=== PATIENT | female | born 1955 | race Caucasian/White ===

== ENCOUNTER 2017-10-25 07:21 | Emergency (ER) | payer OTHER, SELFPAY | END 2017-10-25 09:27 | disposition home or self-care (01) | PROVIDERS: Emergency Provider Emergency Medicine; PCP Internal Medicine; Visit Provider Emergency Medicine | DX: J06.9 Acute upper respiratory infection, unspecified (principal) | CPT/HCPCS: 71020; 71046; 80053; 84484; 85025; 93005; 93010; 94640; 94664; 96361; 96374; 99058; 99285; J1885 ==

== ENCOUNTER → 2018-03-17 13:53 | Outpatient (CLI) | payer OTHER, SELFPAY ==
--- NOTE | 2018-03-17 | DI.RAD.S_ITS ---
PROCEDURE: XR HAND RT MIN 3V INDICATIONS: SPRAIN OF UNSPECIFIED PART OF RT WRIST TECHNIQUE: 3 views of the hand(s) acquired. COMPARISON: None. FINDINGS: Bones: No fractures or dislocations. Carpal bones are normally aligned. No suspicious bony lesions. Soft tissues: No suspicious soft tissue calcifications. IMPRESSION: Normal right hand. Dictated by: Woo Tse M.D. on 03/17/2018 at 17:29 Approved by: Woo Tse M.D. on 03/18/2018 at 9:50
== END ==
PROVIDERS: PCP Internal Medicine; Visit Provider Internal Medicine
DX: S63.91XA Sprain of unspecified part of right wrist and hand, initial encounter (principal)
CPT/HCPCS: 73130

== ENCOUNTER → 2018-06-06 11:58 | Outpatient (CLI) | payer OTHER, SELFPAY ==
[2018-06-06 13:33] LABS: BUN Creatinine Ratio 25.7 (6-22); Blood Urea Nitrogen 18 mg/dL (7-17); Calcium 9.8 mg/dL (8.4-10.2); Carbon Dioxide 29 mmol/L (22-32); Chloride 102 mmol/L (98-107); Cholesterol 231 mg/dL (140-199); Estimated Glomerular Filt Rate > 60.0 mL/min (>60); Glucose 102 mg/dL (80-110); HDL Cholesterol 47 mg/dL (40-60); HEMOLYSIS < 15 (0-50); LDL Cholesterol Calculated 161 mg/dL (<100); Sodium 142 mmol/L (137-145); Triglycerides 117 mg/dL (35-150)
== END ==
PROVIDERS: PCP Internal Medicine; Visit Provider Internal Medicine
DX: R73.02 Impaired glucose tolerance (oral) (principal); E78.00 Pure hypercholesterolemia, unspecified
CPT/HCPCS: 36415; 80048; 80061

== ENCOUNTER → 2018-06-08 10:31 | Outpatient (CLI) | payer OTHER, SELFPAY ==
--- NOTE | 2018-06-08 | DI.US.S_ITS ---
PROCEDURE: US CAROTID DOPPLER BI INDICATIONS: Occlusion and stenosis of unspecified carotid vimal TECHNIQUE: Color and pulse Doppler interrogation was performed of both carotid systems, with image documentation and velocity measurements. COMPARISON: [facility], , CAROTID ARTERY DOPPLER BILAT, 11/26/2016, 8:36. FINDINGS: Stenosis calculations are based on SRU (Society of Radiologists in Ultrasound) criteria. Right side: Brachial blood pressure: 120/61 mm Hg. Common carotid artery peak systolic velocity: 102 cm/sec. Internal carotid artery peak systolic velocity: 85 cm/sec. Internal carotid artery end diastolic velocity: 24 cm/sec. External carotid artery peak systolic velocity: 111 cm/sec. ICA/CCA peak systolic ratio: 0.8. Singh scale imaging description: Minimal plaque at the bifurcation Percent internal carotid artery stenosis: Less than 50%. Vertebral artery: Flow direction is antegrade. Left side: Brachial blood pressure: 114/65 mm Hg. Common carotid artery peak systolic velocity: 130 cm/sec. Internal carotid artery peak systolic velocity: 91 cm/sec. Internal carotid artery end diastolic velocity: 30 cm/sec. External carotid artery peak systolic velocity: 93 cm/sec. ICA/CCA peak systolic ratio: 0.7. Singh scale imaging description: Mild plaque at the bifurcation Percent internal carotid artery stenosis: Less than 50%. Vertebral artery: Flow direction is antegrade. IMPRESSION: Bilateral less than 50% ICA stenoses. Dictated by: Manish Harp M.D. on 06/08/2018 at 12:55 Approved by: Manish Harp M.D. on 06/08/2018 at 12:57
== END ==
PROVIDERS: PCP Internal Medicine; Visit Provider Internal Medicine
DX: I65.23 Occlusion and stenosis of bilateral carotid arteries (principal)
CPT/HCPCS: 93880

== ENCOUNTER → 2018-07-26 10:06 | Outpatient (CLI) | payer OTHER, SELFPAY ==
[2018-07-26 12:25] LABS: TSH w/ Reflex to FT4 1.64 uIU/mL (0.47-4.68)
== END ==
PROVIDERS: PCP Internal Medicine; Visit Provider Internal Medicine
DX: E03.9 Hypothyroidism, unspecified (principal)
CPT/HCPCS: 36415; 84443

== ENCOUNTER → 2019-01-18 10:08 | Outpatient (CLI) | payer OTHER, SELFPAY ==
[2019-01-18 11:46] LABS: TSH w/ Reflex to FT4 0.98 uIU/mL (0.47-4.68)
== END ==
PROVIDERS: PCP Internal Medicine; Visit Provider Internal Medicine
DX: E03.9 Hypothyroidism, unspecified (principal)
CPT/HCPCS: 36415; 84443

== ENCOUNTER → 2019-03-28 08:47 | Outpatient (CLI) | payer OTHER, SELFPAY ==
[2019-03-28 09:57] LABS: BUN Creatinine Ratio 23.8 (6-22); Blood Urea Nitrogen 19 mg/dL (7-17); Carbon Dioxide 27 mmol/L (22-32); Chloride 103 mmol/L (98-107); Estimated Glomerular Filt Rate > 60.0 mL/min (>60); Glucose 114 mg/dL (80-110); HEMOLYSIS < 15 (0-50); Potassium 4.8 mmol/L (3.4-5.1); Sodium 140 mmol/L (137-145)
[2019-03-28 11:00] LABS: TSH w/ Reflex to FT4 2.11 uIU/mL (0.47-4.68)
== END ==
PROVIDERS: PCP Internal Medicine; Visit Provider Internal Medicine Hematology & Oncology
DX: C50.412 Malignant neoplasm of upper-outer quadrant of left female breast (principal); E03.9 Hypothyroidism, unspecified
CPT/HCPCS: 36415; 80048; 84443

== ENCOUNTER → 2020-01-17 14:57 | Outpatient (ROUT) | payer OTHER, SELFPAY ==
[2020-01-17 16:22] LABS: TSH w/ Reflex to FT4 1.35 uIU/mL (0.47-4.68)
[2020-01-17 16:42] LABS: BUN Creatinine Ratio 31.3 (6-22); Blood Urea Nitrogen 25 mg/dL (7-17); Calcium 10.4 mg/dL (8.4-10.2); Carbon Dioxide 30 mmol/L (22-32); Chloride 102 mmol/L (98-107); Cholesterol 234 mg/dL (140-199); Estimated Glomerular Filt Rate > 60.0 mL/min (>60); Glucose 113 mg/dL (80-110); HDL Cholesterol 41 mg/dL (40-60); HEMOLYSIS < 15 (0-50); LDL Cholesterol Calculated 162 mg/dL (<100); Potassium 4.9 mmol/L (3.4-5.1); Sodium 138 mmol/L (137-145); Triglycerides 153 mg/dL (35-150)
== END ==
PROVIDERS: PCP Internal Medicine; Visit Provider Internal Medicine
DX: Z00.00 Encounter for general adult medical examination without abnormal findings (principal); E03.9 Hypothyroidism, unspecified; E78.00 Pure hypercholesterolemia, unspecified
CPT/HCPCS: 80048; 80061; 84443

== ENCOUNTER → 2020-04-17 14:16 | Outpatient (CLI) | payer OTHER, SELFPAY ==
[2020-04-17 14:54] LABS: Add Manual Diff / Slide Review NO; Basophils Absolute Auto 100 /uL (0-100); Basophils Percent Auto 0.6 % (0-2); Eosinophils Absolute Auto 300 /uL (0-450); Eosinophils Percent Auto 2.3 % (2-4); Hematocrit 40.8 % (36-46); Hemoglobin 13.5 g/dL (12.0-16.0); Lymphocytes Absolute Auto 2600 /uL (1100-4500); Lymphocytes Percent Auto 23.3 % (25-40); Mean Corpuscular Volume 93.9 fL (80-100); Monocytes Absolute Auto 800 /uL (0-900); Monocytes Percent Auto 6.8 % (3-14); Neutrophils Absolute Auto 7400 /uL (1500-7000); Platelet Count 415 X10^3/uL (150-400); Red Blood Cell Count 4.34 X10^6/uL (4.0-5.2); Red Cell Distribution Width 13.3 % (11.6-14.8); White Blood Cell Count 11.1 X10^3/uL (4.5-11.0)
[2020-04-17 17:03] LABS: Alanine Aminotransferase 25 IU/L (<35); Albumin 4.4 g/dL (3.5-5.0); Albumin Globulin Ratio 1.3 (1.0-2.8); Alkaline Phosphatase 65 U/L (38-126); Aspartate Aminotransferase 30 IU/L (14-36); BUN Creatinine Ratio 26.5 (6-22); Bilirubin Total 0.9 mg/dL (0.2-1.3); Blood Urea Nitrogen 22 mg/dL (7-17); Calcium 9.7 mg/dL (8.4-10.2); Carbon Dioxide 34 mmol/L (22-32); Chloride 102 mmol/L (98-107); Estimated Glomerular Filt Rate > 60.0 mL/min (>60); Globulin 3.5 g/dL (1.7-4.1); Glucose 104 mg/dL (80-110); HEMOLYSIS < 15 (0-50); Potassium 5.1 mmol/L (3.4-5.1); Sodium 139 mmol/L (137-145); Total Protein 7.9 g/dL (6.3-8.2)
[2020-04-17 17:33] LABS: Thyroid Stimulating Hormone 1.24 uIU/mL (0.47-4.68)
== END ==
PROVIDERS: PCP Internal Medicine; Referring Provider Internal Medicine Hematology & Oncology; Visit Provider Internal Medicine Hematology & Oncology
DX: C50.012 Malignant neoplasm of nipple and areola, left female breast (principal); Z17.1 Estrogen receptor negative status [ER-]
CPT/HCPCS: 36415; 80053; 84443; 85025

== ENCOUNTER → 2021-03-14 08:45 | Outpatient (CLI) | payer MEDICARE, OTHER, SELFPAY ==
[2021-03-14 10:43] LABS: Add Manual Diff / Slide Review NO; Basophils Absolute Auto 100 /uL (0-100); Basophils Percent Auto 0.9 % (0-2); Eosinophils Absolute Auto 300 /uL (0-450); Eosinophils Percent Auto 3.3 % (2-4); Hematocrit 38.3 % (36-46); Hemoglobin 12.7 g/dL (12.0-16.0); Lymphocytes Absolute Auto 2700 /uL (1100-4500); Lymphocytes Percent Auto 25.6 % (25-40); Mean Corpuscular HGB Conc 33.3 % (30-36); Mean Corpuscular Hemoglobin 31.2 PG (26-34); Mean Corpuscular Volume 93.8 fL (80-100); Monocytes Absolute Auto 800 /uL (0-900); Monocytes Percent Auto 7.4 % (3-14); Neutrophils Absolute Auto 6600 /uL (1500-7000); Neutrophils Percent Auto 62.8 % (50-75); Platelet Count 383 X10^3/uL (150-400); Red Blood Cell Count 4.08 X10^6/uL (4.0-5.2); Red Cell Distribution Width 14.8 % (11.6-14.8); White Blood Cell Count 10.6 X10^3/uL (4.5-11.0)
[2021-03-14 11:14] LABS: Alanine Aminotransferase 35 IU/L (<35); Albumin 4.3 g/dL (3.5-5.0); Albumin Globulin Ratio 1.4 (1.0-2.8); Alkaline Phosphatase 64 U/L (38-126); Aspartate Aminotransferase 38 IU/L (14-36); BUN Creatinine Ratio 27.8 (6-22); Bilirubin Total 0.6 mg/dL (0.2-1.3); Blood Urea Nitrogen 20 mg/dL (7-17); Calcium 9.6 mg/dL (8.4-10.2); Carbon Dioxide 27 mmol/L (22-32); Chloride 107 mmol/L (98-107); Estimated Glomerular Filt Rate > 60.0 mL/min (>60); Glucose 114 mg/dL (80-110); HEMOLYSIS < 15 (0-50); Potassium 4.5 mmol/L (3.4-5.1); Sodium 140 mmol/L (137-145); Total Protein 7.3 g/dL (6.3-8.2)
== END ==
PROVIDERS: PCP Internal Medicine; Referring Provider Internal Medicine Hematology & Oncology; Visit Provider Internal Medicine Hematology & Oncology
DX: Z85.71 Personal history of Hodgkin lymphoma (principal); C50.012 Malignant neoplasm of nipple and areola, left female breast; Z17.1 Estrogen receptor negative status [ER-]
CPT/HCPCS: 36415; 80053; 85025

== ENCOUNTER → 2023-01-07 12:15 | Outpatient (CLI) | payer MEDICARE, OTHER, SELFPAY ==
--- NOTE | 2023-01-07 | DI.RAD.S_ITS ---
Bone Density Report Name: MELLY JIMENEZ Age: 67 Sex: Female Ethnicity: White Date of : 1955 Indication: osteopenia; parental hip fracture; Referring Provider: GELY GARCIA Study: Bone densitometry was performed. Exam Date: January 07, 2023 Accession number: [id number] Bone Density: Region BMD T-score Z-score Classification AP Spine(L1-L4) 0.885 -1.5 0.4 Osteopenia Femoral Neck (Left) 0.638 -1.9 -0.3 Osteopenia Total Hip (Left) 0.823 -1.0 0.4 Normal Femoral Neck (Right) 0.661 -1.7 -0.1 Osteopenia Total Hip (Right) 0.873 -0.6 0.8 Normal Total Hip Mean 0.848 -0.8 0.6 Normal World Health Organization criteria for BMD impression classify patients as: Normal (T-score at or above -1.0), Osteopenia (T-score between -1.0 and -2.5), or Osteoporosis (T-score at or below -2.5). 10-year Fracture Risk(1): Major Osteoporotic Fracture 18% Hip Fracture 2.2% Reported Risk Factors: [place] (), Neck BMD=0.638, BMI=25.8, parental fracture (1) FRAX(R) Version 3.08. Fracture probability calculated for an untreated patient. Fracture probability may be lower if the patient has received treatment. Previous Exams: -- Region Exam Age BMD T-score BMD Change BMD Change Date g/cm2 vs Baseline vs Previous -- AP Spine (L1-L4) 01/07/2023 67 0.885 -1.5 -0.028 (-3.1%)# -0.028 (-3.1%)# 03/10/2017 61 0.913 -1.2 Total Hip(Left) 01/07/2023 67 0.823 -1.0 -0.010 (-1.2%)# -0.010 (-1.2%)# 03/10/2017 61 0.833 -0.9 Total Hip(Right) 01/07/2023 67 0.873 -0.6 -0.009 (-1.0%)# -0.009 (-1.0%)# 03/10/2017 61 0.882 -0.5 -- *Denotes significance at 95% confidence level, LSC for AP Spine = 0.022 g/cm2, LSC for Total Hip = 0.027 g/cm2 # Denotes dissimilar scan types or analysis methods Impression: The patient has low bone mass, based on the Left Femoral Neck T-score. The patient has an estimated ten-year risk of hip fracture of 2.2% and an estimated ten-year risk of major fracture of 18%, based on the WHO FRAX algorithm. The patient has risk factors, including: parental hip fracture. No significant bone loss was observed. Discussion: BONE DENSITY IS LOW AT ONE OR MORE SKELETAL SITES. This patient's lowest T-score is low at one or more skeletal sites. It meets the World Health Organization's (WHO) criteria for low bone mass (T-score between -1.0 and -2.5). The patient's 10-year risk of fracture as calculated by FRAX is less than the threshold where pharmacological therapy is recommended by the National Osteoporosis Foundation (NOF). However, all treatment decisions require clinical judgment and consideration of individual patient factors, including patient preferences, comorbidities, previous drug use, risk factors not captured in the FRAX model (e.g., frailty, falls, vitamin D deficiency, increased bone turnover, interval significant decline in bone density) and possible under or overestimation of fracture risk by FRAX. The patient should follow a healthful lifestyle (good nutrition with adequate calcium and vitamin D, and appropriate weight-bearing exercise). Follow-Up: Consider repeating this study in 2 to 3 years to reassess this patient's status, or sooner if there is some new clinical indication. Reported by: SID CLAUDIO M.D. on 01/07/2023 12:50:00 PM.
--- NOTE | 2023-01-07 | DI.US.S_ITS ---
PROCEDURE: US PERIPH VENOUS LOW EXTREM RT INDICATIONS: Asymptomatic menopausal state Pain in right knee TECHNIQUE: Real-time imaging, as well as color and pulse Doppler interrogation, were performed of the lower extremity deep veins from the inguinal ligament to the popliteal fossa. COMPARISON: None. FINDINGS: The common femoral, femoral and popliteal veins are normally compressible, and free of intraluminal thrombus. Color and pulse Doppler demonstrate normal phasic intraluminal flow. There is normal augmentation response to distal compression maneuver. IMPRESSION: No deep vein thrombosis of the right lower extremity. Dictated by: Beatrice Tavares M.D. on 01/07/2023 at 15:26 Approved by: Beatrice Tavares M.D. on 01/07/2023 at 15:26
== END ==
PROVIDERS: PCP Internal Medicine; Referring Provider Physician Assistant; Visit Provider Physician Assistant
DX: Z78.0 Asymptomatic menopausal state (principal); M25.561 Pain in right knee; M85.852 Other specified disorders of bone density and structure, left thigh
CPT/HCPCS: 77080; 93971

== ENCOUNTER → 2023-02-05 11:52 | Outpatient (CLI) | payer MEDICARE, OTHER, SELFPAY | PROVIDERS: PCP Internal Medicine; Referring Provider Internal Medicine; Visit Provider Internal Medicine | DX: R06.02 Shortness of breath (principal) | CPT/HCPCS: 94060; 94726; 94729 ==

== ENCOUNTER → 2023-03-22 10:06 | Outpatient (CLI) | payer MEDICARE, OTHER, SELFPAY ==
[2023-03-22 11:46] LABS: Alanine Aminotransferase 26 IU/L (<35); Aspartate Aminotransferase 28 IU/L (14-36); Cholesterol 220 mg/dL (140-199); Creatine Kinase 74 U/L (30-135); HDL Cholesterol 38 mg/dL (40-60); LDL Cholesterol Calculated 156 mg/dL (<100); Triglycerides 128 mg/dL (35-150)
[2023-03-22 11:57] LABS: LDL Cholesterol Direct 134 mg/dL (<100)
== END ==
PROVIDERS: PCP Internal Medicine; Referring Provider Internal Medicine Cardiovascular Disease; Visit Provider Internal Medicine Cardiovascular Disease
DX: E78.5 Hyperlipidemia, unspecified (principal); I77.9 Disorder of arteries and arterioles, unspecified
CPT/HCPCS: 36415; 80061; 82550; 83721; 84450; 84460

== ENCOUNTER → 2023-03-25 11:43 | Outpatient (CLI) | payer MEDICARE, OTHER, SELFPAY ==
--- NOTE | 2023-03-25 | DI.CT.S_ITS ---
PROCEDURE: CT ABDOMEN PELVIS W CON INDICATIONS: Right lower quadrant pain TECHNIQUE: After the administration of oral and IV contrast, axial sections were acquired from the lung bases to the pubic symphysis. Coronal and sagittal reformats were performed. For radiation dose reduction, the following was used: automated exposure control, adjustment of mA and/or kV according to patient size. COMPARISON: None. FINDINGS: Image quality: Excellent. Lung bases: Unremarkable. Left mastectomy. Heart: Normal size. Small pericardial effusion. ABDOMEN: Liver: Normal size. Mild hepatic steatosis. Gallbladder: Unremarkable. Biliary ducts: Unremarkable. Pancreas: Unremarkable. Spleen: Surgical clips in the splenic bed. Remnant spleen tissue/splenules noted. Adrenal Glands: Unremarkable. Kidneys and Ureters: Unremarkable. Stomach and Bowel: Stomach, small bowel loops, and colon are normal in caliber. Appendix is not visualized. There are surgical clips in the right lower quadrant, possibly related to appendectomy. Terminal ileum appears normal, as well as cecum. There is a large amount of stool in colon. Mild diverticulosis. No acute diverticulitis. Peritoneum: No abnormal intraperitoneal fluid. No free air. Ventral Wall: No hernia. Abdominal Nodes: No retroperitoneal or mesenteric adenopathy by size criteria. Vessels: Aorta and inferior vena cava are normal in size. PELVIS: Pelvic Organs: Unremarkable. Bladder: Unremarkable. Pelvic Nodes: No enlarged lymph nodes. Miscellaneous: No inguinal hernias are seen. Bones: Unremarkable. IMPRESSION: 1. A cause for right lower quadrant pain is not definitively identified. Appendix is not visualized. There are postsurgical changes in the right lower quadrant. Recommend clinical correlation for appendectomy. 2. A large amount of stool in colon. 3. Mild diverticulosis without diverticulitis. 4. Small pericardial effusion. Dictated by: Woo Tse M.D. on 03/25/2023 at 15:50 Approved by: Woo Tse M.D. on 03/26/2023 at 11:35
== END ==
PROVIDERS: PCP Internal Medicine; Referring Provider Internal Medicine; Visit Provider Internal Medicine
DX: I31.39 Other pericardial effusion (noninflammatory) (principal); K76.0 Fatty (change of) liver, not elsewhere classified; K57.90 Diverticulosis of intestine, part unspecified, without perforation or abscess without bleeding; R10.31 Right lower quadrant pain
CPT/HCPCS: 74177; Q9967

== ENCOUNTER 2023-03-29 09:41 | Day surgery (SDC) | payer MEDICARE, OTHER, SELFPAY ==
[2023-03-29 09:53] VITALS: BP 115/69; PULSE 86; RESP 16; TEMP 36.6; O2SAT 100; BMI 25.0
[2023-03-29] MEDS: LACTATED RINGERS 1,000 ML 42 ML IV (10:09)
[2023-03-29 11:27] VITALS: BP 72/34; PULSE 77; RESP 16; TEMP 36.2; O2SAT 97
--- NOTE | 2023-03-29 11:29 | PM.OP.COLON ---
Operative Date/Time/Diagnoses Date of procedure: 03/29/23 Time of procedure: 11:29 Pre-op diagnosis: Family history of colon cancer Post-op diagnosis: same Procedure & Clinicians Study performed: Colonoscopy Same procedure as scheduled: Yes Indications: Family history colon cancer Surgeon: Lawson Max Procedure Notes SCOAP/Timeout: Done Procedure in detail: After the risks and benefits were explained, written and verbal informed consent was obtained. The patient was brought into the procedure room and placed into the left lateral decubitus position. Please see anesthesia notes for sedation details. Digital rectal examination was accomplished. The scope was introduced into the patient and advanced under direct visualization to the cecum as identified by the appendiceal orifice and ileocecal valve. The scope was slowly withdrawn to carefully examine the mucosa for any defects or lesions. Comprehensive imaging was accomplished throughout the rectum including the dentate line. The colon was decompressed, the scope was then removed from the patient who tolerated the procedure well. Pediatric colonoscope Bowel prep adequate Scope withdrawal time: 11 minutes Sedation minutes: 17 Specimen(s): none sent Complications: none Impression: Patient had grade 2-3 internal hemorrhoids. No significant pathology was appreciated throughout the colon. There was a small 5 mm submucosal nodule just distal to the dentate line in the anal canal. This was within the hemorrhoidal cushions and felt like it might be a small thrombosis. No overlying mucosal anomaly. It felt somewhat firm under closed forceps but not hard and was fairly mobile. Endoscopic diagnosis 1. Grade 2-3 internal hemorrhoids 2. Internal hemorrhoid submucosal nodule suggesting a small focus of thrombosis. 3. Otherwise visually unremarkable colonoscopy Post-procedure Plan for aftercare: Repeat colonoscopy 5 years considering family history. Disposition: PACU
[2023-03-29 11:30] VITALS: BP 75/30; PULSE 80; RESP 17; O2SAT 97
[2023-03-29 11:35] VITALS: BP 82/66; PULSE 21; RESP 12; O2SAT 80
[2023-03-29 11:40] VITALS: BP 118/33; PULSE 78; RESP 20; TEMP 36.6; O2SAT 98
[2023-03-29 11:50] VITALS: BP 105/56; PULSE 80; RESP 13; O2SAT 99
--- NOTE | 2023-05-10 10:03 | PM.HP.1 ---
History of Present Illness History of Present Illness Date Patient Seen: 03/29/23 Chief complaint: Colonoscopy Narrative: This is a late note. The patient was seen for colonoscopy. My January 2023 consult note was provided for review. FORMERLY [facility], [facility] Social History household members: significant other and none Smoking Status: Never smoker alcohol intake: current Meds Home Medications and Allergies Home Medications Medication Instructions Recorded Confirmed Type Esomeprazole Magnesium (Nexium) 20 mg PO Q DAY ##0 09/04/10 03/29/23 History aspirin 81 mg tablet,delayed 81 mg PO DAILY 01/13/23 03/29/23 History release (Adult Low Dose Aspirin) levothyroxine 75 mcg capsule 75 mcg PO DAILY 01/13/23 03/29/23 History olmesartan 5 mg tablet 5 mg PO DAILY 01/13/23 03/29/23 History Allergies Allergy/AdvReac Type Severity Reaction Status Date / Time morphine AdvReac Unknown Local Verified 03/29/23 06:44 reaction only Review of Systems Review of Systems ROS: Yes All systems reviewed with the patient and are negative except as otherwise documented Exam Vital Signs (past 8 hours): Oxygen Delivery Method Room Air Const General: cooperative HENMT Head: normal to inspection Eyes General: appearance normal, both eyes and all related structures Neck Neck: normal visual inspection Chest Chest: normal inspection of the chest Resp Effort & Inspection: normal respiratory effort Cardio Rate: regular rate GI Inspection: normal to inspection Skin General: no rashes or lesions noted Neuro General: patient alert and patient awake Extrem General: normal to inspection and no pedal edema Psych Appearance: grossly normal Assessment & Plan Assessment & Plan narrative: 67-year-old female with a family history of colon cancer. Colonoscopy is pursued today. (this note was entered today May 10, 2023 as for some reason the original H&P did not get transcribed into the electronic record).
== END 2023-03-29 12:03 | disposition home or self-care (01) ==
PROVIDERS: PCP Internal Medicine; Referring Provider Internal Medicine Gastroenterology; Visit Provider Internal Medicine Gastroenterology
PROC: 0DJD8ZZ Inspection of Lower Intestinal Tract, Via Natural or Artificial Opening Endoscopic (ICD-10-PCS; CPT 45378; principal; 2023-03-29 11:00)
DX: Z12.11 Encounter for screening for malignant neoplasm of colon (principal); Z80.0 Family history of malignant neoplasm of digestive organs; K64.2 Third degree hemorrhoids
CPT/HCPCS: G0105; J2704

== ENCOUNTER → 2023-06-03 08:20 | Outpatient (CLI) | payer MEDICARE, OTHER, SELFPAY ==
[2023-06-03 08:51] LABS: Add Manual Diff / Slide Review NO; Basophils Absolute Auto 100 /uL (0-100); Basophils Percent Auto 0.5 % (0-2); Eosinophils Absolute Auto 300 /uL (0-450); Eosinophils Percent Auto 2.3 % (2-4); Hematocrit 37.3 % (36-46); Hemoglobin 12.5 g/dL (12.0-16.0); Lymphocytes Absolute Auto 3600 /uL (1100-4500); Lymphocytes Percent Auto 29.8 % (25-40); Mean Corpuscular HGB Conc 33.4 % (30-36); Mean Corpuscular Hemoglobin 31.1 PG (26-34); Mean Corpuscular Volume 92.9 fL (80-100); Monocytes Absolute Auto 1000 /uL (0-900); Monocytes Percent Auto 8.4 % (3-14); Neutrophils Absolute Auto 7200 /uL (1500-7000); Platelet Count 418 X10^3/uL (150-400); Red Blood Cell Count 4.02 X10^6/uL (4.0-5.2); Red Cell Distribution Width 13.6 % (11.6-14.8); White Blood Cell Count 12.1 X10^3/uL (4.5-11.0)
[2023-06-03 08:58] LABS: Prothrombin Time 11.6 SECONDS (9.4-12.5)
[2023-06-03 09:04] LABS: Albumin 4.4 g/dL (3.5-5.0); BUN Creatinine Ratio 29.6 (6-22); Blood Urea Nitrogen 21 mg/dL (7-17); Calcium 10.4 mg/dL (8.4-10.2); Carbon Dioxide 28 mmol/L (22-32); Chloride 103 mmol/L (98-107); Estimated Glomerular Filt Rate > 60 mL/min (>60); Glucose 112 mg/dL (80-110); HEMOLYSIS < 15 (0-50); Phosphorous 3.8 mg/dL (2.8-4.1); Potassium 4.7 mmol/L (3.4-5.1); Sodium 138 mmol/L (137-145)
== END ==
PROVIDERS: PCP Internal Medicine; Referring Provider Internal Medicine Cardiovascular Disease; Visit Provider Internal Medicine Cardiovascular Disease
DX: E78.5 Hyperlipidemia, unspecified (principal); R06.02 Shortness of breath; R79.89 Other specified abnormal findings of blood chemistry; I27.20 Pulmonary hypertension, unspecified; I77.9 Disorder of arteries and arterioles, unspecified
CPT/HCPCS: 36415; 80069; 85025; 85610

== ENCOUNTER → 2023-08-15 13:08 | Outpatient (CLI) | payer MEDICARE, OTHER, SELFPAY ==
--- NOTE | 2023-08-15 | DI.MRI.S_ITS ---
PROCEDURE: MR KNEE RT WO CON INDICATIONS: ACUTE MEDIAL MENISCUS TEAR TECHNIQUE: Noncontrast sagittal PD fast spin echo and T2 fast spin echo with fat saturation, sagittal 3-D FLASH with fat saturation; coronal T1 spin echo and PD fast spin echo with fat saturation, and axial PD fast spin echo with fat saturation through the knee. COMPARISON: None. FINDINGS: Image quality: Excellent. Menisci: complex oblique tear involving posterior horn of medial meniscus is seen extending to both superior and inferior articulating surfaces. Peripheral displacement of medial meniscus bowing medial collateral ligament is seen. The lateral meniscus is intact . Low-grade partial-thickness tear involving posterior medial meniscal root ligament is noted. Cruciate ligaments: The anterior and posterior cruciate ligaments appear intact. Medial structures: The medial collateral ligament appears intact. Visualized portions of the pes anserinus tendons appear normal. No abnormal bursal fluid. Lateral structures: The lateral collateral ligament, long and short heads of the biceps femoris tendon appear intact. The popliteus tendon appears normal. Iliotibial band appears normal. Anterior structures: Distal quadriceps tendinosis at its superior patellar insertion is seen. Patellar tendon is intact. Patellar alignment is normal. No femoral trochlear dysplasia or ventral trochlear prominence. No edema in the infrapatellar fat pad. 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 No fracture or dislocation. Joint space: There is moderate knee joint fluid. No Arreola's cyst. Normal appearing synovial plicae are incidentally noted. IMPRESSION: 1. Complex oblique tear involving posterior horn of medial meniscus extending to both superior and inferior articulating surfaces. The lateral meniscus is intact. Low-grade partial-thickness tear involving posterior medial meniscal root ligament. 2. The cruciate ligaments are intact. 3. Distal quadriceps tendinosis. 4. 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 No fracture or dislocation. Moderate joint effusion, no gross loose bodies. Dictated by: Anatoliy Leal M.D. on 08/16/2023 at 13:12 Approved by: Anatoliy Leal M.D. on 08/16/2023 at 13:24
== END ==
LOC: MRI 13:09
PROVIDERS: PCP Internal Medicine; Referring Provider Orthopaedic Surgery Foot and Ankle Surgery; Visit Provider Orthopaedic Surgery Foot and Ankle Surgery
DX: S83.231A Complex tear of medial meniscus, current injury, right knee, initial encounter (principal); M17.11 Unilateral primary osteoarthritis, right knee; M94.261 Chondromalacia, right knee; M25.461 Effusion, right knee; X58.XXXA Exposure to other specified factors, initial encounter
CPT/HCPCS: 73721

== ENCOUNTER 2023-12-30 06:30 | Day surgery (SDC) | payer MEDICARE, OTHER, SELFPAY ==
[2023-12-29 07:57] VITALS: BMI 25.7
[2023-12-30 07:03] VITALS: BMI 25.0
[2023-12-30 07:09] VITALS: BP 112/71; PULSE 80; RESP 16; TEMP 36.5; O2SAT 96
[2023-12-30 07:20] VITALS: BMI 25.0
--- NOTE | 2023-12-30 07:48 | PM.PREOP ---
Pre-operative Note Interval Note History & Physical reviewed/Exam performed by Physician: Yes Changes to H&P: No
[2023-12-30] MEDS: CEFAZOLIN 2 GM/100 ML PREMIX 100 ML IV (08:00)
--- NOTE | 2023-12-30 08:03 | SUR.OPER ---
Supine on padded OR bed, head on pillow, RIGHT ARM secured on padded arm board at <90 degrees abduction, LEFT ARM PADDED AND TUCKED, legs uncrossed, safety belt at ABDOMEN tape over blanket over NON-OPERATIVE leg. RIGHT THIGH BRACE IN PLACE. PADDED ROLLER AT RIGHT FOOT.
[2023-12-30] MEDS: BUPIVACAINE 0.25% (PF) 30 ML, EPINEPHrine 0.15 MG INJ (08:15)
[2023-12-30] MEDS: ACETAMINOPHEN IV 1,000 MG/100 ML VIAL 400 MG IV (08:15)
[2023-12-30 09:25] VITALS: BP 145/59; PULSE 85; RESP 15; TEMP 37.2; O2SAT 92
[2023-12-30 09:30] VITALS: BP 138/62; PULSE 94; RESP 89; O2SAT 14
--- NOTE | 2023-12-30 09:32 | PM.OP.1 ---
Operative Date/Time/Diagnoses Date of procedure: 12/30/23 Time of procedure: 09:33 Pre-op diagnosis: Right medial meniscal root tear Post-op diagnosis: same Procedure & Clinicians Procedure: Right medial meniscus root repair Synovectomy multiple compartments right knee Same procedure as scheduled: Yes Indications: Indications: This is a 68-year-old female who has chronic right knee pain and a meniscal root tear noted on MRI. They have a positive Prisca's and joint line tenderness. Nonoperative management was attempted including ice, anti-inflammatories, activity modifications and therapy. We also discussed potential injections. This was unsuccessful. Due to the mechanical symptoms of popping clicking and pain at the medial joint line we discussed we will forward with surgery. Risks and benefits of surgery were discussed again including the risk of infection, damage to internal structures, bleeding, nerve injury, instability, need for revision surgery, blood clots, anesthesia and . No guarantees were made regarding outcomes. Patient expressed understanding and accepted these risks and wished to go forward with surgery and consent was signed. Surgeon: Jack Fuentes Java Web[employer] Developer: Meme Love Anesthesia Type: General Operative Notes Findings: Findings: Patellofemoral compartment-grade 2 chondromalacia in the cartilage in the trochlea and medial and lateral facet of the patella Lateral gutter: No loose bodies Medial gutter: No loose bodies Medial compartment: Femoral condyle grade 2 chondromalacia, medial tibial plateau-grade 2 chondromalacia, medial meniscus-vertical tear of the posterolateral horn of the medial meniscus Intercondylar notch: Intact PCL, ACL intact with the attachment to the lateral wall Lateral compartment: Femoral condyle cartilage intact, lateral tibial plateau cartilage, intact, lateral meniscus intact Closure Type: primary Specimen(s): none sent Prosthetic devices, grafts, tissues, transplants, or devices: Implants: Arthrex all-inside meniscal repair x1 SwiveLock x1 Estimated Blood Loss (mL): 10 Tourniquet time (min): 30 Procedure in detail: Procedure: Patient was seen in the preoperative holding area. The right lower extremity was marked with my initials. We again went over the risks and benefits of surgery and they wished to go forward with surgery. They were brought back to the operating room and placed supine on the operating table. IV antibiotics was administered. The patient then underwent smooth induction of anesthesia. A nonsterile tourniquet was placed on the upper thigh. The right lower extremity was then prepped and draped in the standard sterile fashion and again my initials were again noted. A time-out was performed. Procedure was begun with a outflow portal superomedial. Then a anteromedial and anterolateral portal were established outside in. A diagnostic scope was then performed demonstrating the above-noted findings. Due to significant synovitis, Thorough debridement of the anterior fat pad which encompassed multiple compartments including the lateral compartment and patellofemoral compartment was completed to allow complete extension. This was done with a 4.0 mm shaver. Due to arthritis and unstable flaps, [Slight debridement of articular cartilage was performed arthroscopically of the medial facet of the patella and of the lateral compartment] was performed with a 4.0 mm shaver. Attention was then turned to the medial meniscus. A complete tear of the meniscal root was noted was a vertical tear leaving a small stump. A rasp was used within the tear to instigate healing. Next in order to obtain visualization, a percutaneous trephination of the MCL was performed. The bed of the root was then prepared with a curette. I then used an ACL MU guide in order to drill a aeroplane pilot hole from the medial cortex of the tibia to the posterior root. This was then over-drilled and an 18 gauge needle was placed in the drill hole. A PDS suture was used as a passing stitch and pulled out through the anteromedial portal. Using a scorpion meniscal Passer, a 2. FiberWire was used to capture the posterior root in a luggage tag formation, this was then passed using our passing suture through the anterior cortex of the tibia. Tension was maintained and this was placed into a 4.75 mm SwiveLock. Last Using a skid for insertion a all-inside all suture meniscal repair device was used to create a [id number]-[id number]-[id number] suture between the stump and the repaired meniscus. Instruments were removed and the knee was suctioned dry. 15 cc Marcaine were injected into the joint through the outflow portal. The wounds were closed with 3-0 Monocryl Steri-Strips and 4x4s. It was then wrapped with an León bandage. The patient was awoken from anesthesia without any complications and transported back to the postoperative recovery unit. Assisting participation: This operation could not have been safely performed (without compromising the technical results or length of the procedure) without the assistance of a skilled surgical dental assistant. The surgical dental assistant was medically necessary for proper positioning, retraction and manipulation of instruments, proper exposure, graft prep, and manipulation of tissue. Complications: none Post-operative Condition: stable Disposition: PACU Plan for aftercare: Postoperatively patient will be touchdown weight-bearing in a hinged knee brace for 6 weeks
[2023-12-30 09:35] VITALS: BP 157/63; PULSE 88; RESP 16; O2SAT 93
[2023-12-30 09:40] VITALS: BP 143/69; PULSE 80; RESP 16; TEMP 37.2; O2SAT 96
[2023-12-30 09:47] VITALS: BP 155/72; PULSE 79; RESP 14; TEMP 37.2; O2SAT 94
[2023-12-30] MEDS: LACTATED RINGERS 1,000 ML 42 ML IV (10:16)
== END 2023-12-30 10:16 | disposition home or self-care (01) ==
PROVIDERS: PCP Internal Medicine; Referring Provider Orthopaedic Surgery Foot and Ankle Surgery; Visit Provider Orthopaedic Surgery
PROC: (CPT 29870; principal; 2023-12-30 07:45)
DX: S83.203A Other tear of unspecified meniscus, current injury, right knee, initial encounter (principal); S83.31XA Tear of articular cartilage of right knee, current, initial encounter; M65.9 Synovitis and tenosynovitis, unspecified; M94.261 Chondromalacia, right knee
CPT/HCPCS: 29882; 29876; C1713; C1776; J0136; J0171; J0690; J1100; J1170; J1885; J2405; J2704

== ENCOUNTER 2024-12-16 22:37 | Emergency (ER) | payer MEDICARE, OTHER, SELFPAY ==
--- NOTE | 2024-12-16 22:43 | EKG_ITS ---
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
--- NOTE | 2024-12-16 22:43 | DI.RAD.S_ITS ---
PROCEDURE: XR CHEST 1V INDICATIONS: Chest Pain, HTN, irregular hearbeat TECHNIQUE: One view of the chest was acquired. COMPARISON: [facility], , CHEST 2 VIEW, 10/25/2017, 8:16. FINDINGS: Surgical changes and devices: None. Lungs and pleura: Lungs are clear. No pleural effusions or pneumothorax. Mediastinum: Mediastinal contours appear normal. Heart size is normal. Atherosclerotic vascular calcification noted in the aortic arch. Bones and chest wall: No suspicious bony lesions. Overlying soft tissues appear unremarkable. IMPRESSION: No acute cardiopulmonary abnormality is seen. Approved by: Herbert Ha M.D. on 12/16/2024 at 22:25
[2024-12-16 22:45] VITALS: BP 131/60; PULSE 92; RESP 16; TEMP 36.2; O2SAT 96; BMI 23.5
[2024-12-16 23:04] LABS: Add Manual Diff / Slide Review NO; Basophils Absolute Auto 200 /uL (0-100); Basophils Percent Auto 1.3 % (0-2); Eosinophils Absolute Auto 400 /uL (0-450); Eosinophils Percent Auto 2.3 % (2-4); Hematocrit 37.5 % (36-46); Hemoglobin 12.7 g/dL (12.0-16.0); Lymphocytes Absolute Auto 4900 /uL (1100-4500); Lymphocytes Percent Auto 29.1 % (25-40); Mean Corpuscular HGB Conc 33.7 % (30-36); Mean Corpuscular Hemoglobin 31.5 PG (26-34); Mean Corpuscular Volume 93.3 fL (80-100); Monocytes Absolute Auto 1000 /uL (0-900); Monocytes Percent Auto 6.2 % (3-14); Neutrophils Absolute Auto 10300 /uL (1500-7000); Neutrophils Percent Auto 61.1 % (50-75); Platelet Count 369 X10^3/uL (150-400); Red Blood Cell Count 4.02 X10^6/uL (4.0-5.2); Red Cell Distribution Width 14.3 % (11.6-14.8); White Blood Cell Count 16.8 X10^3/uL (4.5-11.0)
[2024-12-16 23:11] LABS: Prothrombin Time 11.2 SECONDS (9.4-12.5)
[2024-12-16 23:13] LABS: PTT Partial Thromboplastin Tim 38 SECONDS (25.1-36.5)
[2024-12-16 23:16] LABS: Alanine Aminotransferase 24 IU/L (<35); Albumin 4.6 g/dL (3.5-5.0); Albumin Globulin Ratio 1.5 (1.0-2.8); Alkaline Phosphatase 61 U/L (38-126); Aspartate Aminotransferase 29 IU/L (14-36); BUN Creatinine Ratio 27.7 (6-22); Bilirubin Total 0.7 mg/dL (0.2-1.3); Blood Urea Nitrogen 23 mg/dL (7-17); Calcium 9.9 mg/dL (8.4-10.2); Carbon Dioxide 28 mmol/L (22-32); Chloride 104 mmol/L (98-107); Creatine Kinase 85 U/L (30-135); Estimated Glomerular Filt Rate > 60 mL/min (>60); Globulin 3.1 g/dL (1.7-4.1); Glucose 124 mg/dL (70-99); HEMOLYSIS < 15 (0-50); Lipase 55 U/L (23-300); Magnesium 1.9 mg/dL (1.6-2.3); Potassium 4.1 mmol/L (3.4-5.1); Sodium 141 mmol/L (137-145); Total Protein 7.7 g/dL (6.3-8.2)
[2024-12-16 23:27] LABS: NT-proBNP (BNP-Adult 18+) 913 pg/mL (<125); Troponin I 0.014 ng/mL (0.01-0.034)
--- NOTE | 2024-12-17 00:08 | ED_ITS ---
HPI - Chest Pain General Chief Complaint: Chest Pain Stated Complaint: chest pain, irreg heart beat, high BP Time Seen by Provider: 12/17/24 00:07 Source: patient Mode of arrival: Ambulatory History of Present Illness HPI narrative: 69-year-old female with a past medical history of Hodgkin's lymphoma, hypothyroidism, comes into the ED from home for evaluation of palpitations, tachycardia and chest tightness. States that this happened at a green party while she was at rest, she currently is not complaining of the symptoms denies any other symptoms at this time. Patient states that she also noticed her blood pressure was high, here at time of evaluation patient is pulse 92, normotensive. Related Data Home Medications ?Medication ?Instructions ?Recorded ?Confirmed Esomeprazole Magnesium (Nexium) 20 mg PO Q DAY ##0 09/1212/30/23 aspirin 81 mg tablet,delayed 81 mg PO DAILY 01/13/23 0 12/30/23 release (Adult Low Dose Aspirin) levothyroxine 75 mcg capsule 75 mcg PO DAILY 01/13/23 12/30/23 olmesartan 5 mg tablet 5 mg PO DAILY 01/13/2312/29 escitalopram oxalate 10 mg tablet 10 mg PO DAILY 12/2912/30/23 evolocumab 140 mg/mL subcutaneous 140 mg SUBCUT Q2W 12/30/23 pen injector (Ernie Hagan) hydrocodone 5 mg-acetaminophen 325 1 tab PO Q4-6H PRN severe pain 12/30/23 12/30/23 mg tablet Allergies Allergy/AdvReac Type Severity Reaction Status Date / Time atorvastatin AdvReac Intermediate Muscle Pain Verified 12/16/24 22:45 ezetimibe (From Vytorin) AdvReac Intermediate Muscle Pain Verified 12/16/24 22:45 morphine AdvReac Intermediate Local Verified 12/16/24 22:45 reaction only niacin AdvReac Intermediate Flushing Verified 12/16/24 22:45 rosuvastatin AdvReac Intermediate Muscle Pain Verified 12/16/24 22:45 simvastatin (From Vytorin) AdvReac Intermediate Muscle Pain Verified 12/16/24 22:45 Review of Systems Review of Systems Narrative: General: Denies fever, chills, weight loss HEENT: Denies headache, eye drainage, eye irritation, head trauma, sore throat, voice change Cardiovascular: Positive palpitations, tachycardia, denies chest pain Respiratory: Denies any shortness of breath, cough, wheeze, stridor GI/: Denies any abdominal pain, nausea, vomiting, diarrhea, bright red blood per rectum, melanotic stools, urinary frequency, urinary retention, dysuria, hematuria MSK: Denies any joint pain, muscle pains, swelling Skin: Denies any rashes, lesions, discoloration Neuro: Denies any headache, lightheadedness, dizziness, fainting, weakness Psych: Denies SI/HI Patient History Medical History (Updated 12/17/24 @ 00:12 by Mitesh Kim DO) Pulmonary fibrosis Hx of osteopenia Chronic cough History of depression Hypothyroid Irritable bowel GERD (gastroesophageal reflux disease) Elevated LFTs History of pericarditis Carotid artery disease Breast cancer, left (2008) Hodgkin disease (1983) HLD (hyperlipidemia) HTN (hypertension) Aortic valve regurgitation RBBB (right bundle branch block) Surgical History (Updated 12/29/23 @ 08:09 by Jahaira Nevarez RN) History of esophagogastroduodenoscopy (EGD) (04/2017) Hx of colonoscopy (04/2017) Hx of appendectomy (2018) Hx of splenectomy (1983) Hx of tubal ligation (1980) Hx of left mastectomy (2008) Hx of cardiac catheterization (06/08/23) Social History household members: significant other and none Smoking Status: Never smoker alcohol intake: current Smoking Status: Never smoker alcohol intake frequency: a few times a week Exam Narrative Exam Narrative: General: Cooperative, well-developed, not in acute distress HEENT: Normocephalic, atraumatic, PERRLA, normal sclera, eyelids normal Neck: Active full range of motion, atraumatic Chest: Normal to inspection, negative crepitus, no overlying erythema ecchymosis Respiratory: Normal respiratory effort, not in acute respiratory distress, clear to auscultation bilaterally negative cough, wheeze, tachypnea, rhonchi, rales Cardiology: Regular rate rhythm negative gallop, murmur, rubs GI/: No tenderness to palpation, soft, non rigid, normal to inspection, exam deferred MSK: Full active range of motion in all 4 extremities, atraumatic, no tenderness to palpation of any bony prominences Skin: No rashes or lesions noted Neuro: Alert awake oriented x3, moves all 4 extremities spontaneously, cranial nerves intact, able to answer all questions appropriately follows commands appropriately Psych: Cooperative, negative suicidal or homicidal ideations Initial Vital Signs Initial Vital Signs: Vital Signs Temperature 97.2 F L 12/16/24 22:45 Pulse Rate 92 H 12/16/24 22:45 Respiratory Rate 16 12/16/24 22:45 Blood Pressure 131/60 12/16/24 22:45 Pulse Oximetry 96 12/16/24 22:45 Oxygen Delivery Method Room Air 12/16/24 22:45 Course Orders Ordered: ED Orders 12/16/24 22:43 XR chest 1V Stat EKG-12 Lead Stat 12/16/24 22:53 Complete Blood Count AUTO DIFF Stat Comprehensive Metabolic Panel Stat Lipase Stat Magnesium Stat NT-proBNP (BNP-Adult 18+) Stat PTT Partial Thromboplastin Lucio Stat Prothrombin Time INR Stat Troponin & CK Cardiac Panel Stat 12/17/24 00:19 Trop I [Troponin I] Stat 12/17/24 02:00 Trop I [Troponin I] Stat Discontinued Medications Aspirin (Aspirin 81 Mg Chew Tab) 324 mg PO NOW ONE Stop: 12/16/24 22:44 Last Admin: 12/17/24 00:15 Dose: Not Given Documented By: AB Sodium Chloride (Normal Saline 0.9%) 1,000 mls @ 1,000 mls/hr IV BOLUS ONE Stop: 12/17/24 01:58 Vital Signs Vital signs: Vital Signs - 8 hr 12/16/24 22:45 12/17/24 00:11 12/17/24 00:12 Temperature 97.2 F L Pulse Rate 92 H 84 Respiratory Rate 16 30 H Blood Pressure 131/60 123/62 Pulse Oximetry 96 98 Oxygen Delivery Method Room Air 12/17/24 00:12 12/17/24 00:30 12/17/24 00:30 Temperature Pulse Rate 85 81 Respiratory Rate 24 20 Blood Pressure 117/53 L Pulse Oximetry 97 96 Oxygen Delivery Method Room Air MDM - Chest Pain Differential Diagnosis Differential diagnosis: Likely st elevation myocardial infarction, costochondritis, chest pain and other (Electrolyte abnormality, ACS, pneumonia) Lab Data 12/16/24 22:53 12/16/24 22:53 Labs: Lab Results 12/16/24 12/17/24 Range/Units 22:53 00:19 WBC 16.8 H (4.5-11.0) X10^3/uL RBC 4.02 (4.0-5.2) X10^6/uL Hgb 12.7 (12.0-16.0) g/dL Hct 37.5 (36-46) % MCV 93.3 (80-100) fL MCH 31.5 (26-34) PG MCHC 33.7 (30-36) % RDW 14.3 (11.6-14.8) % Plt Count 369 (150-400) X10^3/uL Neut % (Auto) 61.1 (50-75) % Lymph % (Auto) 29.1 (25-40) % Davie % (Auto) 6.2 (3-14) % Eos % (Auto) 2.3 (2-4) % Baso % (Auto) 1.3 (0-2) % Neut # (Auto) 42010 H (3299-9845) /uL Lymph # (Auto) 4900 H (8410-6187) /uL Davie # (Auto) 1000 H (0-900) /uL Eos # (Auto) 400 (0-450) /uL Baso # (Auto) 200 H (0-100) /uL PT 11.2 (9.4-12.5) SECONDS INR 1.0 (0.9-1.3) APTT 38 H (25.1-36.5) SECONDS Sodium 141 (137-145) mmol/L Potassium 4.1 (3.4-5.1) mmol/L Chloride 104 (98-107) mmol/L Carbon Dioxide 28 (22-32) mmol/L BUN 23 H (7-17) mg/dL Creatinine 0.83 (0.52-1.04) mg/dL Estimated GFR > 60 (>60) mL/min BUN/Creatinine Ratio 27.7 H (6-22) Glucose 124 H (70-99) mg/dL Calcium 9.9 (8.4-10.2) mg/dL Magnesium 1.9 (1.6-2.3) mg/dL Total Bilirubin 0.7 (0.2-1.3) mg/dL AST 29 (14-36) IU/L ALT 24 (<35) IU/L Alkaline Phosphatase 61 (38-126) U/L Total Creatine Kinase 85 (30-135) U/L Troponin I 0.014 0.030 (0.01-0.034) ng/mL NT-Pro-B Natriuret Pep 913 H (<125) pg/mL Total Protein 7.7 (6.3-8.2) g/dL Albumin 4.6 (3.5-5.0) g/dL Globulin 3.1 (1.7-4.1) g/dL Albumin/Globulin Ratio 1.5 (1.0-2.8) Lipase 55 (23-300) U/L Imaging Data Chest x-ray: Radiologist's Impression: [address] [address] XRay Report Signed Patient: Yulissa Ledbetter MR#: [id number] : 1955 Acct:[id number] Age/Sex: 69 / F Date of Service: 12/16/24 Loc: ED Accession Number: [id number] Procedure: XR chest 1V Ordering Provider: Mitesh Kim D.O. PROCEDURE: XR CHEST 1V INDICATIONS: Chest Pain, HTN, irregular hearbeat TECHNIQUE: One view of the chest was acquired. COMPARISON: [facility] , CHEST 2 VIEW, 10/25/2017, 8:16. FINDINGS: Surgical changes and devices: None. Lungs and pleura: Lungs are clear. No pleural effusions or pneumothorax. Mediastinum: Mediastinal contours appear normal. Heart size is normal. Atherosclerotic vascular calcification noted in the aortic arch. Bones and chest wall: No suspicious bony lesions. Overlying soft tissues appear unremarkable. IMPRESSION: No acute cardiopulmonary abnormality is seen. ECG Data Interpretation: EKG interpreted by ED physician sinus 90 beats per minute, QTC 486, right bundle-branch block noted, occasional PACs noted, no STEMI this is similar to previous performed on 11/26/2020 [facility] Narrative Medical decision making narrative: 69-year-old female with a history of Hodgkin's lymphoma, hypothyroidism, presenting for chest palpitations tachycardia and high blood pressure, states it started while she was at a green party, at time of evaluation here in the emergency department patient normotensive not tachycardic, she presented with previous cardiac workup which showed she had a AI without any acute findings this was performed on 11/20/2024, she also presented with her catheterization report performed on 06/08/2023 which showed normal to borderline right heart pressures, [id number] proximal left circumflex stenosis without hemodynamic significance, patient did have mild leukocytosis here in the emergency department most likely reactive, chest x-ray without any acute cardiopulmonary abnormality, initial troponin 0.014, with repeat 0.030. 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 Disease processes change and evolve, if your symptoms worsen or if you develop any new symptoms that are concerning to you please return for evaluation. Your evaluation today does not show any evidence of any life- threatening/serious illnesses requiring admission to the hospital or surgery. Please follow-up with your doctor for re-evaluation in approximately 1 day. Seek immediate medical attention for any worrisome symptoms. *If you do not have a primary care provider please contact the [facility] Resource line at [phone]. They will ask some questions about your medical history and help get you set up with a doctor in the community. Prescriptions: No Action Esomeprazole Magnesium (Nexium) 20 mg PO Q DAY Qty: 0 escitalopram oxalate 10 mg tablet 10 mg PO DAILY Repatha SureClick 140 mg/mL pen injector 140 mg SUBCUT Q2W hydrocodone-acetaminophen 5-325 mg tablet 1 tab PO Q4-6H PRN (Reason: severe pain) Patient Comments: for post op olmesartan 5 mg tablet 5 mg PO DAILY levothyroxine 75 mcg capsule 75 mcg PO DAILY aspirin [Adult Low Dose Aspirin] 81 mg tablet,delayed release (DR/EC) 81 mg PO DAILY Referrals: Tegan Hopkins MD [Primary Care Provider, Internal Medicine] Stand Alone Forms: Patient Portal/API
[2024-12-17 00:11] VITALS: PULSE 84; RESP 30; O2SAT 98
[2024-12-17 00:12] VITALS: BP 123/62; PULSE 85; RESP 24; O2SAT 97
[2024-12-17 00:30] VITALS: BP 117/53; PULSE 81; RESP 20; O2SAT 96
[2024-12-17 01:00] VITALS: BP 124/60; PULSE 83; RESP 20; O2SAT 94
== END 2024-12-17 01:44 | disposition home or self-care (01) ==
PROVIDERS: Emergency Provider Student in an Organized Health Care Education/Training Program; PCP Internal Medicine
DX: R00.2 Palpitations (principal); R07.89 Other chest pain; R00.0 Tachycardia, unspecified
CPT/HCPCS: 36415; 71045; 80053; 82550; 83690; 83735; 83880; 84484; 85025; 85610; 85730; 93005; 99284

== ENCOUNTER 2025-03-12 12:13 | Emergency (ER) | payer MEDICARE, OTHER, SELFPAY ==
[2025-03-12] VITALS (38 sets, daily range): BP systolic 92–151; BP diastolic 31–82; PULSE 71–127; RESP 12–29; TEMP 36.4–36.7; O2SAT 91–99; BMI 24.3
--- NOTE | 2025-03-12 12:23 | DI.RAD.S_ITS ---
PROCEDURE: XR CHEST 1V INDICATIONS: Chest Pain TECHNIQUE: One view of the chest was acquired. COMPARISON: [facility], CR, XR CHEST 1V, 12/16/2024, 22:44. FINDINGS: Surgical changes and devices: None. Lungs and pleura: Lungs are clear. No pleural effusions or pneumothorax. Mediastinum: Mediastinal contours appear normal. Heart size is normal. Bones and chest wall: No suspicious bony lesions. Overlying soft tissues appear unremarkable. IMPRESSION: No acute cardiopulmonary pathology. Dictated by: Anatoliy Leal M.D. on 03/12/2025 at 12:58 Approved by: Anatoliy Leal M.D. on 03/12/2025 at 12:58
--- NOTE | 2025-03-12 12:23 | EKG_ITS ---
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
--- NOTE | 2025-03-12 12:50 | ED.ARRPALP ---
HPI - Arrhythmia/Palpitations General Chief Complaint: Arrhythmia/Palpitations Stated Complaint: sent from cardio- SOB, Tachy, low BP Time Seen by Provider: 03/12/25 12:34 Source: patient Mode of arrival: Ambulatory History of Present Illness HPI narrative: Patient is a 69-year-old female history of atrial fibrillation on Eliquis and flecainide presenting today with AFib. She reports that she did drink alcohol to nights ago and then noticed yesterday morning at 6:00 a.m. her heart was racing. She wears a watch she noticed that her heart rate was in the high 120s. Not dizzy or lightheaded mildly short of breath but reports she is always short of breath. No fever or chills. She is followed by cardiology at [facility]. Related Data Home Medications ?Medication ?Instructions ?Recorded ?Confirmed Esomeprazole Magnesium (Nexium) 20 mg PO Q DAY ##0 09/04/10 12/30/23 aspirin 81 mg tablet,delayed 81 mg PO DAILY 01/13/23 12/30/23 release (Adult Low Dose Aspirin) levothyroxine 75 mcg capsule 75 mcg PO DAILY 01/13/23 12/30/23 olmesartan 5 mg tablet 5 mg PO DAILY 01/13/23 12/30/23 escitalopram oxalate 10 mg tablet 10 mg PO DAILY 12/30/23 12/30/23 evolocumab 140 mg/mL subcutaneous 140 mg SUBCUT Q2W 12/30/23 12/30/23 pen injector (Ernie Hagan) hydrocodone 5 mg-acetaminophen 325 1 tab PO Q4-6H PRN severe pain 12/30/23 12/30/23 mg tablet Allergies Allergy/AdvReac Type Severity Reaction Status Date / Time atorvastatin AdvReac Intermediate Muscle Pain Verified 03/12/25 12:19 ezetimibe (From Vytorin) AdvReac Intermediate Muscle Pain Verified 03/12/25 12:19 morphine AdvReac Intermediate Local Verified 03/12/25 12:19 reaction only niacin AdvReac Intermediate Flushing Verified 03/12/25 12:19 rosuvastatin AdvReac Intermediate Muscle Pain Verified 03/12/25 12:19 simvastatin (From Vytorin) AdvReac Intermediate Muscle Pain Verified 03/12/25 12:19 Patient History Medical History Pulmonary fibrosis Hx of osteopenia Chronic cough History of depression Hypothyroid Irritable bowel GERD (gastroesophageal reflux disease) Elevated LFTs History of pericarditis Carotid artery disease Breast cancer, left (2008) Hodgkin disease (1983) HLD (hyperlipidemia) HTN (hypertension) Aortic valve regurgitation RBBB (right bundle branch block) Surgical History History of esophagogastroduodenoscopy (EGD) (04/2017) Hx of colonoscopy (04/2017) Hx of appendectomy (2018) Hx of splenectomy (1983) Hx of tubal ligation (1980) Hx of left mastectomy (2008) Hx of cardiac catheterization (06/08/23) Social History household members: significant other and none Smoking Status: Never smoker alcohol intake: current Smoking Status: Never smoker alcohol intake frequency: a few times a week Exam Initial Vital Signs Initial Vital Signs: Vital Signs Temperature 97.6 F 03/12/25 12:19 Pulse Rate 127 H 03/12/25 12:19 Respiratory Rate 18 03/12/25 12:19 Blood Pressure 98/64 03/12/25 12:19 Pulse Oximetry 99 03/12/25 12:19 Oxygen Delivery Method Room Air 03/12/25 12:19 GENERAL: Alert very well-appearing 69-year-old female and in no acute distress. HEENT: Head atraumatic,EOMI, pupils reactive, face symmetric, moist mucous membranes CARDIOVASCULAR: Tachycardic irregularly irregular RESPIRATORY: Breath sounds equal bilaterally, no wheezes rales or rhonchi. ABDOMEN: Soft, nontender. Normoactive bowel sounds all 4 quadrants. No guarding or rebound. EXTREMITIES: Normal range of motion, no clubbing or edema. Neurovascularly intact NEUROLOGICAL: Alert and oriented x4.Normal gait and speech. Cranial nerves II through XII grossly intact. SKIN: Warm, dry, no laceration, no petechiae, no rashes or lesions. Procedures Cardioversion Consent Signed: Yes Indication: AFib with RVR Number of attempts (shocks): 1 Joules used: 120 Cardiac rhythm post-cardioversion: Normal sinus rhythm Procedural Sedation Consent signed: Yes Time out performed: Yes Indication: cardioversion Preparation: jr. systems administrator applied, pulse oximeter, capnometry used, supplemental O2 applied, reversal agents at bedside and suction/airway equipment at bedside IV Propofol dose (mg): 50 Intraservice time/total sedation time (min): 12 ED Sedation Level: Moderate (Concious) Patient Tolerated Procedure: Well and No complications Complications: none Course Orders Ordered: ED Orders 03/12/25 12:23 XR chest 1V Stat EKG-12 Lead Stat 03/12/25 12:36 Complete Blood Count AUTO DIFF Stat Comprehensive Metabolic Panel Stat Lipase Stat Magnesium Stat NT-proBNP (BNP-Adult 18+) Stat PTT Partial Thromboplastin Lucio Stat Prothrombin Time INR Stat Troponin & CK Cardiac Panel Stat Discontinued Medications Aspirin (Aspirin 81 Mg Chew Tab) 324 mg PO NOW ONE Stop: 03/12/25 12:24 Last Admin: 03/12/25 15:33 Dose: Not Given Propofol (Propofol 200 Mg/20 Ml Vial) 50 mg IV NOW ONE Stop: 03/12/25 14:30 Last Admin: 03/12/25 15:08 Dose: 50 mg Vital Signs Vital signs: Vital Signs - 8 hr 03/12/25 12:19 03/12/25 12:55 03/12/25 13:00 Temperature 97.6 F Pulse Rate 127 H 124 H 123 H Respiratory Rate 18 16 24 Blood Pressure 98/64 Pulse Oximetry 99 95 95 Oxygen Delivery Method Room Air Oxygen Flow Rate 03/12/25 13:30 03/12/25 13:35 03/12/25 13:35 Temperature Pulse Rate 120 H 121 H Respiratory Rate 17 25 H Blood Pressure 107/65 Pulse Oximetry 96 95 Oxygen Delivery Method Oxygen Flow Rate 03/12/25 14:00 03/12/25 14:00 03/12/25 14:30 Temperature Pulse Rate 119 H Respiratory Rate 12 Blood Pressure 115/63 124/69 Pulse Oximetry 95 Oxygen Delivery Method Oxygen Flow Rate 03/12/25 14:30 03/12/25 14:39 03/12/25 14:51 Temperature 98.1 F Pulse Rate 119 H 116 H 116 H Respiratory Rate 22 16 22 Blood Pressure 124/69 Pulse Oximetry 96 96 98 Oxygen Delivery Method Nasal Cannula Oxygen Flow Rate 3 3 03/12/25 14:52 03/12/25 14:52 03/12/25 14:54 Temperature Pulse Rate 116 H Respiratory Rate 19 Blood Pressure 125/56 L 117/59 L Pulse Oximetry 98 Oxygen Delivery Method Nasal Cannula Oxygen Flow Rate 3 03/12/25 14:54 03/12/25 14:56 03/12/25 14:56 Temperature Pulse Rate 116 H 116 H Respiratory Rate 17 21 Blood Pressure 112/59 L Pulse Oximetry 96 92 Oxygen Delivery Method Nasal Cannula Nasal Cannula Oxygen Flow Rate 3 3 03/12/25 14:58 03/12/25 14:58 03/12/25 15:00 Temperature Pulse Rate 116 H 117 H Respiratory Rate 20 24 Blood Pressure 110/64 Pulse Oximetry 96 98 Oxygen Delivery Method Nasal Cannula Nasal Cannula Oxygen Flow Rate 3 3 03/12/25 15:00 03/12/25 15:02 03/12/25 15:02 Temperature Pulse Rate 117 H Respiratory Rate 29 H Blood Pressure 116/82 119/79 Pulse Oximetry 97 Oxygen Delivery Method Nasal Cannula Oxygen Flow Rate 3 03/12/25 15:04 03/12/25 15:04 03/12/25 15:07 Temperature Pulse Rate 116 H 121 H Respiratory Rate 19 21 Blood Pressure 116/75 131/65 Pulse Oximetry 97 91 Oxygen Delivery Method Nasal Cannula Oxygen Flow Rate 3 3 03/12/25 15:07 03/12/25 15:07 03/12/25 15:08 Temperature Pulse Rate 116 H Respiratory Rate 19 Blood Pressure 101/53 L 151/65 H Pulse Oximetry 98 Oxygen Delivery Method Room Air Oxygen Flow Rate 3 03/12/25 15:08 03/12/25 15:11 03/12/25 15:11 Temperature Pulse Rate 115 H 74 Respiratory Rate 25 H 21 Blood Pressure 151/63 H Pulse Oximetry 98 91 Oxygen Delivery Method Nasal Cannula Nasal Cannula Oxygen Flow Rate 3 3 03/12/25 15:12 03/12/25 15:14 03/12/25 15:15 Temperature 98 F Pulse Rate 98 H 71 Respiratory Rate 16 16 Blood Pressure 111/31 L 116/52 L Pulse Oximetry 98 97 Oxygen Delivery Method Oxygen Flow Rate 0 03/12/25 15:15 03/12/25 15:16 03/12/25 15:16 Temperature Pulse Rate 73 72 Respiratory Rate 18 25 H Blood Pressure 111/51 L Pulse Oximetry 97 96 Oxygen Delivery Method Nasal Cannula Nasal Cannula Oxygen Flow Rate 3 3 03/12/25 15:19 03/12/25 15:19 03/12/25 15:20 Temperature Pulse Rate 72 Respiratory Rate 18 Blood Pressure 105/50 L 99/49 L Pulse Oximetry 98 Oxygen Delivery Method Oxygen Flow Rate 0 03/12/25 15:20 03/12/25 15:21 03/12/25 15:21 Temperature Pulse Rate 71 71 Respiratory Rate 13 26 H Blood Pressure 102/53 L Pulse Oximetry 99 98 Oxygen Delivery Method Oxygen Flow Rate 0 0 03/12/25 15:22 03/12/25 15:22 03/12/25 15:24 Temperature Pulse Rate 72 Respiratory Rate 24 12 Blood Pressure 105/52 L Pulse Oximetry 97 Oxygen Delivery Method Oxygen Flow Rate 0 03/12/25 15:24 03/12/25 15:24 03/12/25 15:26 Temperature Pulse Rate 72 Respiratory Rate Blood Pressure 99/49 L 100/49 L Pulse Oximetry 96 Oxygen Delivery Method Oxygen Flow Rate 03/12/25 15:26 03/12/25 15:27 03/12/25 15:27 Temperature Pulse Rate 74 74 Respiratory Rate 17 20 Blood Pressure 100/50 L Pulse Oximetry 94 95 Oxygen Delivery Method Oxygen Flow Rate 03/12/25 15:28 03/12/25 15:28 03/12/25 15:30 Temperature Pulse Rate 74 Respiratory Rate 22 Blood Pressure 92/52 L 94/51 L Pulse Oximetry 96 Oxygen Delivery Method Oxygen Flow Rate 03/12/25 15:30 03/12/25 15:32 03/12/25 15:32 Temperature Pulse Rate 73 74 Respiratory Rate 22 15 Blood Pressure 100/54 L Pulse Oximetry 94 96 Oxygen Delivery Method Oxygen Flow Rate 03/12/25 15:34 03/12/25 15:34 03/12/25 15:35 Temperature Pulse Rate 73 Respiratory Rate 17 Blood Pressure 100/52 L 101/51 L Pulse Oximetry 95 Oxygen Delivery Method Oxygen Flow Rate 03/12/25 15:35 03/12/25 15:40 03/12/25 15:40 Temperature Pulse Rate 73 75 Respiratory Rate 21 18 Blood Pressure 102/50 L Pulse Oximetry 94 96 Oxygen Delivery Method Oxygen Flow Rate 03/12/25 15:45 03/12/25 15:45 03/12/25 15:50 Temperature Pulse Rate 74 Respiratory Rate 20 Blood Pressure 105/48 L 110/56 L Pulse Oximetry 97 Oxygen Delivery Method Oxygen Flow Rate 03/12/25 15:50 Temperature Pulse Rate 77 Respiratory Rate 18 Blood Pressure Pulse Oximetry Oxygen Delivery Method Oxygen Flow Rate MDM - Arrhythmia/Palpitations Lab Data 03/12/25 12:36 03/12/25 12:36 Labs: Lab Results 03/12/25 Range/Units 12:36 WBC 12.0 H (4.5-11.0) X10^3/uL RBC 4.84 (4.0-5.2) X10^6/uL Hgb 15.4 (12.0-16.0) g/dL Hct 45.9 (36-46) % MCV 94.8 (80-100) fL MCH 31.9 (26-34) PG MCHC 33.6 (30-36) % RDW 14.1 (11.6-14.8) % Plt Count 456 H (150-400) X10^3/uL Neut % (Auto) 69.9 (50-75) % Lymph % (Auto) 22.0 L (25-40) % Clare % (Auto) 5.5 (3-14) % Eos % (Auto) 2.0 (2-4) % Baso % (Auto) 0.6 (0-2) % Neut # (Auto) 8400 H (4694-2732) /uL Lymph # (Auto) 2600 (3475-7039) /uL Clare # (Auto) 700 (0-900) /uL Eos # (Auto) 200 (0-450) /uL Baso # (Auto) 100 (0-100) /uL PT 15.2 H (9.4-12.5) SECONDS INR 1.3 (0.9-1.3) APTT 41 H (25.1-36.5) SECONDS Sodium 138 (137-145) mmol/L Potassium 4.6 (3.4-5.1) mmol/L Chloride 101 (98-107) mmol/L Carbon Dioxide 24 (22-32) mmol/L BUN 25 H (7-17) mg/dL Creatinine 1.14 H (0.52-1.04) mg/dL Estimated GFR 52 L (>60) mL/min BUN/Creatinine Ratio 21.9 (6-22) Glucose 148 H (70-99) mg/dL Calcium 10.0 (8.4-10.2) mg/dL Magnesium 1.7 (1.6-2.3) mg/dL Total Bilirubin 1.4 H (0.2-1.3) mg/dL AST 45 H (14-36) IU/L ALT 31 (<35) IU/L Alkaline Phosphatase 74 (38-126) U/L Total Creatine Kinase 59 (30-135) U/L Troponin I 0.022 (0.01-0.034) ng/mL NT-Pro-B Natriuret Pep 4130 H (<125) pg/mL Total Protein 8.5 H (6.3-8.2) g/dL Albumin 5.0 (3.5-5.0) g/dL Globulin 3.5 (1.7-4.1) g/dL Albumin/Globulin Ratio 1.4 (1.0-2.8) Lipase 70 (23-300) U/L Point of Care Testing Test Results Not applicable Imaging Data Chest x-ray: Radiologist's Impresson: PROCEDURE: XR CHEST 1V INDICATIONS: Chest Pain TECHNIQUE: One view of the chest was acquired. COMPARISON: [facility], , XR CHEST 1V, 12/16/2024, 22:44. FINDINGS: Surgical changes and devices: None. Lungs and pleura: Lungs are clear. No pleural effusions or pneumothorax. Mediastinum: Mediastinal contours appear normal. Heart size is normal. Bones and chest wall: No suspicious bony lesions. Overlying soft tissues appear unremarkable. IMPRESSION: No acute cardiopulmonary pathology. Dictated by: Anatoliy Leal M.D. on 03/12/2025 at 12:58 ECG Data Attestation: I personally reviewed and interpreted this ECG as follows: Interpretation: Atrial flutter rate 126 right bundle-branch block noted she has a known right bundle-branch block Sinus rhythm right bundle-branch block rate [address] changes MDM Narrative Medical decision making narrative: [facility] CC: AFib with RVR Complicating co-morbidities: Atrial fibrillation on Eliquis Data collected from: Patient Medical records reviewed: Last ED visit 12/17/2024 Differential considered: Atrial fibrillation Exam documented above, pertinent findings include: Alert well-appearing 69-year-old female heart rate is tachycardic slightly regular Lab Test results independently reviewed as above. Pertinent findings: CBC no anemia mild leukocytosis of 12 Electrolytes are stable creatinine is 1.14, which is more elevated than previous BNP 4130 Troponin 0.022 Independently reviewed EKG as above Appears to be atrial flutter one-to-one right bundle-branch block Repeat shows sinus rhythm right bundle-branch block no ischemia Imaging studies independently reviewed: Chest x-ray no acute cardiopulmonary process Treatments: Procedure sedation and cardioversion Re-evaluations: Patient is a sinus rhythm awake alert oriented feeling much better and ready able to go Discussion: Patient 69-year-old female history of atrial fibrillation on flecainide and Eliquis presenting today AFib with RVR has been going on for about 36 hours. Blood pressure is sometimes low but she appears well. She has no contraindication to cardioversion. She easily cardioverted. Blood work is overall reassuring. She is followed closely by cardiology. Patient actually called her own tactical/mobile watch officer while in the emergency department who agreed with the procedure. I did not actually talk with Cardiology myself. She overall does not appear fluid overloaded not significantly short of breath will not give her Lasix. Discharge Plan Departure Patient Disposition: Home Clinical Impression: Atrial fibrillation with rapid ventricular response Instructions: DI for Atrial Fibrillation Activity Restrictions/Additional Instructions: *You have been diagnosed with AFib with RVR *What to do: At this time please talk to your tactical/mobile watch officer. I would recommend with staining from alcohol this can exacerbate AFib *Continue to take medications as directed *Follow up with your primary care provider in 2-3 days or call [phone] *Return to ER if you should have increasing palpitation chest pain shortness of or any new, worsening or concerning symptoms Prescriptions: No Action Esomeprazole Magnesium (Nexium) 20 mg PO Q DAY Qty: 0 escitalopram oxalate 10 mg tablet 10 mg PO DAILY Repatha SureClick 140 mg/mL pen injector 140 mg SUBCUT Q2W hydrocodone-acetaminophen 5-325 mg tablet 1 tab PO Q4-6H PRN (Reason: severe pain) Patient Comments: for post op olmesartan 5 mg tablet 5 mg PO DAILY levothyroxine 75 mcg capsule 75 mcg PO DAILY aspirin [Adult Low Dose Aspirin] 81 mg tablet,delayed release (DR/EC) 81 mg PO DAILY Referrals: Tegan Hopkins MD [Primary Care Provider, Internal Medicine] Stand Alone Forms: Patient Portal/API
[2025-03-12 13:05] LABS: Add Manual Diff / Slide Review NO; Hematocrit 45.9 % (36-46); Hemoglobin 15.4 g/dL (12.0-16.0); Lymphocytes Absolute Auto 2600 /uL (1100-4500); Mean Corpuscular HGB Conc 33.6 % (30-36); Mean Corpuscular Hemoglobin 31.9 PG (26-34); Mean Corpuscular Volume 94.8 fL (80-100); Platelet Count 456 X10^3/uL (150-400)
[2025-03-12 13:18] LABS: INR 1.3 (0.9-1.3); Prothrombin Time 15.2 SECONDS (9.4-12.5)
[2025-03-12 13:20] LABS: PTT Partial Thromboplastin Tim 41 SECONDS (25.1-36.5)
[2025-03-12 13:23] LABS: Alanine Aminotransferase 31 IU/L (<35); Albumin 5.0 g/dL (3.5-5.0); Albumin Globulin Ratio 1.4 (1.0-2.8); Alkaline Phosphatase 74 U/L (38-126); Blood Urea Nitrogen 25 mg/dL (7-17); Calcium 10.0 mg/dL (8.4-10.2); Carbon Dioxide 24 mmol/L (22-32); Chloride 101 mmol/L (98-107); Creatine Kinase 59 U/L (30-135); Estimated Glomerular Filt Rate 52 mL/min (>60); Globulin 3.5 g/dL (1.7-4.1); Glucose 148 mg/dL (70-99); HEMOLYSIS < 15 (0-50); Lipase 70 U/L (23-300); Magnesium 1.7 mg/dL (1.6-2.3); Potassium 4.6 mmol/L (3.4-5.1); Sodium 138 mmol/L (137-145); Total Protein 8.5 g/dL (6.3-8.2)
[2025-03-12 13:35] LABS: NT-proBNP (BNP-Adult 18+) 4130 pg/mL (<125); Troponin I 0.022 ng/mL (0.01-0.034)
--- NOTE | 2025-03-12 15:17 | EKG_ITS ---
[address] [address] Test Date: 2025-03-12 Pat Name: Yulissa Ledbetter Department: Room: Gender: Female Sports Development Officer: JEAN CARLOS : 1955 Requested By: Order Number: [id number] Reading MD: Kyler Aviles Measurements Intervals [place] Rate: 73 P: 45 GA: 176 QRS: 104 QRSD: 140 T: 2 QT: 440 QTc: 484 Interpretive Statements Normal sinus rhythm Right bundle branch block Electronically Signed On 03-13-2025 17:27:00 PDT by Kyler Aviles
== END 2025-03-12 16:09 | disposition home or self-care (01) ==
PROVIDERS: Emergency Provider Emergency Medicine; PCP Internal Medicine
DX: I48.20 Chronic atrial fibrillation, unspecified (principal); R07.9 Chest pain, unspecified; Z79.01 Long term (current) use of anticoagulants
CPT/HCPCS: 71045; 80053; 82550; 83690; 83735; 83880; 84484; 85025; 85610; 85730; 92960; 93005; 99152; 99285; J2704

== ENCOUNTER 2025-03-21 15:50 | Emergency (ER) | payer MEDICARE, OTHER, SELFPAY ==
[2025-03-21] VITALS (19 sets, daily range): BP systolic 109–164; BP diastolic 54–73; PULSE 62–122; RESP 12–23; TEMP 36.9; O2SAT 94–99; BMI 24.3
--- NOTE | 2025-03-21 16:03 | EKG_ITS ---
[id number] [place] [address] Test Date: 2025-03-21 Pat Name: Yulissa Ledbetter Department: [facility] Room: Gender: Female Human Resources Team Member: AMIRA : 1955 Requested By: Order Number: [id number] Reading MD: Jai Puente MD Measurements Intervals [place] Rate: 107 P: 97 HI: QRS: 137 QRSD: 160 T: -19 QT: 370 QTc: 493 Interpretive Statements Suspect arm lead reversal, interpretation assumes no reversal Atrial flutter with 2:1 AV conduction Right bundle branch block Left posterior fascicular block Bifascicular block Cannot rule out Inferior infarct , age undetermined Electronically Signed On 03-21-2025 16:48:22 PDT by Jai Puente MD
--- NOTE | 2025-03-21 16:14 | EKG_ITS ---
[address] [address] [address] [address] Test Date: 2025-03-21 Pat Name: Yulissa Ledbetter Department: Room: Gender: Female City Driver: AMIRA : 1955 Requested By: Order Number: [id number] Reading MD: Jai Puente MD Measurements Intervals [place] Rate: 108 P: 102 ME: 176 QRS: 133 QRSD: 148 T: -18 QT: 390 QTc: 522 Interpretive Statements Suspect arm lead reversal, interpretation assumes no reversal Sinus tachycardia Right bundle branch block Left posterior fascicular block Bifascicular block Cannot rule out Inferior infarct , age undetermined NO SIGNIFICANT CHANGE FROM PRIOR TRACING Electronically Signed On 03-22-2025 7:37:04 PDT by Jai Puente MD
[2025-03-21 16:28] LABS: Add Manual Diff / Slide Review NO; Hematocrit 38.2 % (36-46); Hemoglobin 13.0 g/dL (12.0-16.0); Lymphocytes Absolute Auto 2800 /uL (1100-4500); Mean Corpuscular HGB Conc 33.9 % (30-36); Mean Corpuscular Hemoglobin 31.1 PG (26-34); Mean Corpuscular Volume 91.6 fL (80-100); Platelet Count 394 X10^3/uL (150-400)
[2025-03-21 16:38] LABS: INR 1.3 (0.9-1.3); Prothrombin Time 14.9 SECONDS (9.4-12.5)
[2025-03-21 16:41] LABS: PTT Partial Thromboplastin Tim 37 SECONDS (25.1-36.5)
[2025-03-21 16:43] LABS: Alanine Aminotransferase 26 IU/L (<35); Albumin 4.4 g/dL (3.5-5.0); Albumin Globulin Ratio 1.4 (1.0-2.8); Alkaline Phosphatase 61 U/L (38-126); Blood Urea Nitrogen 17 mg/dL (7-17); Calcium 9.1 mg/dL (8.4-10.2); Carbon Dioxide 27 mmol/L (22-32); Chloride 105 mmol/L (98-107); Creatine Kinase 64 U/L (30-135); Estimated Glomerular Filt Rate > 60 mL/min (>60); Globulin 3.1 g/dL (1.7-4.1); Glucose 103 mg/dL (70-99); HEMOLYSIS < 15 (0-50); Lipase 50 U/L (23-300); Magnesium 2.0 mg/dL (1.6-2.3); Potassium 4.3 mmol/L (3.4-5.1); Sodium 142 mmol/L (137-145); Total Protein 7.5 g/dL (6.3-8.2)
[2025-03-21 16:54] LABS: NT-proBNP (BNP-Adult 18+) 4280 pg/mL (<125); Troponin I < 0.012 ng/mL (0.01-0.034)
--- NOTE | 2025-03-21 17:28 | ED.ARRPALP ---
HPI - Arrhythmia/Palpitations <Lawson Box MD - Last Filed: 04/02/25 15:20> General Chief Complaint: Arrhythmia/Palpitations Stated Complaint: elevated heart rate PCP ref Time Seen by Provider: 03/21/25 16:24 Source: patient Mode of arrival: Ambulatory History of Present Illness HPI narrative: This is a 69-year-old female with a history of atrial fibrillation who is anticoagulated on Eliquis and taking flecainide. She developed atrial fibrillation over the summer. Her city superintendent of schools is in [place]. She has metoprolol that she was to take as needed for rapid heart rate, says that she took a dose of that today for the 1st time and afterwards her blood pressures were in the 60s or 70s and she felt quite poorly. She called her city superintendent of schools's office and she was told to come in the emergency department. She is presently feeling better and she is normotensive. She is interested in being cardioverted. She was cardioverted once previously on March 12. She has not missed any doses of Eliquis. When seen on March 12, she was cardioverted she had a proBNP over 4000. She is not on any diuretics and has no known history of heart failure. Last echocardiogram that I could find in the record was November 03, 2023 she had a 66% LVEF mild aortic insufficiency and trace mitral regurg. Related Data Home Medications ?Medication ?Instructions ?Recorded ?Confirmed Esomeprazole Magnesium (Nexium) 20 mg PO Q DAY ##0 09/04/10 12/30/23 aspirin 81 mg tablet,delayed 81 mg PO DAILY 01/13/23 12/30/23 release (Adult Low Dose Aspirin) levothyroxine 75 mcg capsule 75 mcg PO DAILY 01/13/23 12/30/23 olmesartan 5 mg tablet 5 mg PO DAILY 01/13/23 12/30/23 escitalopram oxalate 10 mg tablet 10 mg PO DAILY 12/30/23 12/30/23 evolocumab 140 mg/mL subcutaneous 140 mg SUBCUT Q2W 12/30/23 12/30/23 pen injector (Ernie Hagan) hydrocodone 5 mg-acetaminophen 325 1 tab PO Q4-6H PRN severe pain 12/30/23 12/30/23 mg tablet Allergies Allergy/AdvReac Type Severity Reaction Status Date / Time atorvastatin AdvReac Intermediate Muscle Pain Verified 03/12/25 12:19 ezetimibe (From Vytorin) AdvReac Intermediate Muscle Pain Verified 03/12/25 12:19 morphine AdvReac Intermediate Local Verified 03/12/25 12:19 reaction only niacin AdvReac Intermediate Flushing Verified 03/12/25 12:19 rosuvastatin AdvReac Intermediate Muscle Pain Verified 03/12/25 12:19 simvastatin (From Vytorin) AdvReac Intermediate Muscle Pain Verified 03/12/25 12:19 Patient History <Lawson Box MD - Last Filed: 04/02/25 15:20> Medical History Pulmonary fibrosis Hx of osteopenia Chronic cough History of depression Hypothyroid Irritable bowel GERD (gastroesophageal reflux disease) Elevated LFTs History of pericarditis Carotid artery disease Breast cancer, left (2008) Hodgkin disease (1983) HLD (hyperlipidemia) HTN (hypertension) Aortic valve regurgitation RBBB (right bundle branch block) Surgical History History of esophagogastroduodenoscopy (EGD) (04/2017) Hx of colonoscopy (04/2017) Hx of appendectomy (2018) Hx of splenectomy (1983) Hx of tubal ligation (1980) Hx of left mastectomy (2008) Hx of cardiac catheterization (06/08/23) Social History household members: significant other and none Smoking Status: Never smoker alcohol intake: current Smoking Status: Never smoker alcohol intake frequency: a few times a week Exam <Lawson Box MD - Last Filed: 04/02/25 15:20> Initial Vital Signs Initial Vital Signs: Vital Signs Temperature 98.4 F 03/21/25 15:56 Pulse Rate 107 H 03/21/25 15:56 Respiratory Rate 18 03/21/25 15:56 Blood Pressure 122/60 03/21/25 15:56 Pulse Oximetry 98 03/21/25 15:56 Oxygen Delivery Method Room Air 03/21/25 15:56 vital signs are reviewed Const General: cooperative and No acute distress HENMT Head: normocephalic and atraumatic Face and sinus: face symmetric Mouth: moist mucous membranes Eyes Pupils: PERRL EOM: EOM intact bilaterally Neck Neck: normal visual inspection, supple and No JVD Chest Chest: normal inspection of the chest Resp Effort & Inspection: normal respiratory effort and able to speak in complete sentences Auscultation: clear to auscultation bilaterally Cardio Other: Mildly tachycardic, irregularly irregular no murmur rub or gallop minimal jugular venous distention GI Inspection: normal to inspection Palpation: soft Auscultation: normal bowel sounds Back/Spine/Pelvis Back: normal to inspection Skin General: no rashes or lesions noted and warm Neuro General: patient alert, patient oriented x3 and moves all extremities Speech: speech normal Extrem General: full ROM Psych Appearance: grossly normal <Roya Kahn DO - Last Filed: 03/21/25 23:26> Initial Vital Signs Initial Vital Signs: Vital Signs Temperature 98.4 F 03/21/25 15:56 Pulse Rate 107 H 03/21/25 15:56 Respiratory Rate 18 03/21/25 15:56 Blood Pressure 122/60 03/21/25 15:56 Pulse Oximetry 98 03/21/25 15:56 Oxygen Delivery Method Room Air 03/21/25 15:56 Procedures <Roya Kahn DO - Last Filed: 03/21/25 23:26> Cardioversion Consent Signed: Yes Indication: Atrial flutter bit ventricular rate Stability: Stable Number of attempts (shocks): 1 Joules used: 120 Cardiac rhythm post-cardioversion: Sinus rhythm Procedural Sedation Consent signed: Yes Time out performed: Yes Indication: cardioversion ASA Class: II Mallampati Airway Classification: Class II Time of Last PO Intake: 11:00 Preparation: court recording monitor applied, pulse oximeter, capnometry used, supplemental O2 applied, suction/airway equipment at bedside and IV secured IV Propofol dose (mg): 50 ED Sedation Level: Moderate (Concious) Patient Tolerated Procedure: Well Complications: hypoxia Interventions: Airway repositioned and Oxygen applied Course <Lawson Box MD - Last Filed: 04/02/25 15:20> Course Course Narrative: Discussed cardioversion versus watchful waiting. At this point, patient would prefer cardioversion, I did mention that she is anticoagulated her rate is relatively well controlled at present. Patient understands cardioversion will be done after shift change Orders Ordered: Discontinued Medications Aspirin (Aspirin 81 Mg Chew Tab) 324 mg PO NOW ONE Stop: 03/21/25 16:04 Sodium Chloride (Normal Saline 0.9%) 500 mls @ 1,000 mls/hr IV BOLUS ONE Stop: 03/21/25 19:39 Last Infusion: 03/21/25 20:05 Dose: Infused Documented By: Admin: 03/21/25 19:24 Dose: 1,000 mls/hr Documented By: CASPER Propofol (Propofol 200 Mg/20 Ml Vial) 50 mg IV NOW ONE Stop: 03/21/25 19:34 Last Admin: 03/21/25 20:05 Dose: 50 mg Documented By: CASPER Vital Signs Vital signs: Vital Signs - 8 hr 03/21/25 15:56 03/21/25 16:22 03/21/25 16:22 Temperature 98.4 F Pulse Rate 107 H 109 H Respiratory Rate 18 Blood Pressure 122/60 145/73 H Pulse Oximetry 98 96 Oxygen Delivery Method Room Air Oxygen Flow Rate 03/21/25 16:30 03/21/25 16:30 03/21/25 17:00 Temperature Pulse Rate 110 H Respiratory Rate 13 Blood Pressure 128/61 125/59 L Pulse Oximetry 97 Oxygen Delivery Method Oxygen Flow Rate 03/21/25 17:00 03/21/25 17:30 03/21/25 17:30 Temperature Pulse Rate 109 H 102 H Respiratory Rate 14 22 Blood Pressure 112/66 Pulse Oximetry 95 96 Oxygen Delivery Method Oxygen Flow Rate 03/21/25 18:00 03/21/25 18:00 03/21/25 18:30 Temperature Pulse Rate 112 H Respiratory Rate 15 Blood Pressure 124/58 L 129/59 L Pulse Oximetry 96 Oxygen Delivery Method Oxygen Flow Rate 03/21/25 18:30 03/21/25 19:00 03/21/25 19:00 Temperature Pulse Rate 112 H 110 H Respiratory Rate 23 22 Blood Pressure 124/73 Pulse Oximetry 96 96 Oxygen Delivery Method Oxygen Flow Rate 03/21/25 19:33 03/21/25 19:55 03/21/25 19:55 Temperature Pulse Rate 111 H 111 H Respiratory Rate 19 18 Blood Pressure 164/70 H 164/70 H Pulse Oximetry 97 97 Oxygen Delivery Method Room Air Oxygen Flow Rate 03/21/25 20:00 03/21/25 20:00 03/21/25 20:00 Temperature Pulse Rate 77 122 H Respiratory Rate 19 18 Blood Pressure 159/69 H Pulse Oximetry 97 Oxygen Delivery Method Oxygen Flow Rate 03/21/25 20:05 03/21/25 20:05 03/21/25 20:09 Temperature Pulse Rate 62 67 Respiratory Rate 21 20 Blood Pressure 132/59 L 109/55 L Pulse Oximetry 95 98 Oxygen Delivery Method Nasal Cannula Oxygen Flow Rate 3 3 03/21/25 20:10 03/21/25 20:10 03/21/25 20:15 Temperature Pulse Rate 67 Respiratory Rate 22 Blood Pressure 109/55 L 119/56 L Pulse Oximetry 97 Oxygen Delivery Method Oxygen Flow Rate 03/21/25 20:15 03/21/25 20:20 03/21/25 20:20 Temperature Pulse Rate 68 68 Respiratory Rate 20 21 Blood Pressure 112/56 L Pulse Oximetry 97 96 Oxygen Delivery Method Room Air Oxygen Flow Rate 03/21/25 20:30 03/21/25 20:30 03/21/25 20:45 Temperature Pulse Rate 67 Respiratory Rate 17 Blood Pressure 124/57 L 115/54 L Pulse Oximetry 94 Oxygen Delivery Method Oxygen Flow Rate 03/21/25 20:45 03/21/25 21:00 03/21/25 21:00 Temperature Pulse Rate 67 67 Respiratory Rate 23 12 Blood Pressure 118/58 L Pulse Oximetry 96 96 Oxygen Delivery Method Oxygen Flow Rate <Roya Kahn DO - Last Filed: 03/21/25 23:26> Orders Ordered: Discontinued Medications Aspirin (Aspirin 81 Mg Chew Tab) 324 mg PO NOW ONE Stop: 03/21/25 16:04 Sodium Chloride (Normal Saline 0.9%) 500 mls @ 1,000 mls/hr IV BOLUS ONE Stop: 03/21/25 19:39 Last Infusion: 03/21/25 20:05 Dose: Infused Documented By: Admin: 03/21/25 19:24 Dose: 1,000 mls/hr Documented By: CASPER Propofol (Propofol 200 Mg/20 Ml Vial) 50 mg IV NOW ONE Stop: 03/21/25 19:34 Last Admin: 03/21/25 20:05 Dose: 50 mg Documented By: CASPER Vital Signs Vital signs: Vital Signs - 8 hr 03/21/25 15:56 03/21/25 16:22 03/21/25 16:22 Temperature 98.4 F Pulse Rate 107 H 109 H Respiratory Rate 18 Blood Pressure 122/60 145/73 H Pulse Oximetry 98 96 Oxygen Delivery Method Room Air Oxygen Flow Rate 03/21/25 16:30 03/21/25 16:30 03/21/25 17:00 Temperature Pulse Rate 110 H Respiratory Rate 13 Blood Pressure 128/61 125/59 L Pulse Oximetry 97 Oxygen Delivery Method Oxygen Flow Rate 03/21/25 17:00 03/21/25 17:30 03/21/25 17:30 Temperature Pulse Rate 109 H 102 H Respiratory Rate 14 22 Blood Pressure 112/66 Pulse Oximetry 95 96 Oxygen Delivery Method Oxygen Flow Rate 03/21/25 18:00 03/21/25 18:00 03/21/25 18:30 Temperature Pulse Rate 112 H Respiratory Rate 15 Blood Pressure 124/58 L 129/59 L Pulse Oximetry 96 Oxygen Delivery Method Oxygen Flow Rate 03/21/25 18:30 03/21/25 19:00 03/21/25 19:00 Temperature Pulse Rate 112 H 110 H Respiratory Rate 23 22 Blood Pressure 124/73 Pulse Oximetry 96 96 Oxygen Delivery Method Oxygen Flow Rate 03/21/25 19:33 03/21/25 19:55 03/21/25 19:55 Temperature Pulse Rate 111 H 111 H Respiratory Rate 19 18 Blood Pressure 164/70 H 164/70 H Pulse Oximetry 97 97 Oxygen Delivery Method Room Air Oxygen Flow Rate 03/21/25 20:00 03/21/25 20:00 03/21/25 20:00 Temperature Pulse Rate 77 122 H Respiratory Rate 19 18 Blood Pressure 159/69 H Pulse Oximetry 97 Oxygen Delivery Method Oxygen Flow Rate 03/21/25 20:05 03/21/25 20:05 03/21/25 20:09 Temperature Pulse Rate 62 67 Respiratory Rate 21 20 Blood Pressure 132/59 L 109/55 L Pulse Oximetry 95 98 Oxygen Delivery Method Nasal Cannula Oxygen Flow Rate 3 3 03/21/25 20:10 03/21/25 20:10 03/21/25 20:15 Temperature Pulse Rate 67 Respiratory Rate 22 Blood Pressure 109/55 L 119/56 L Pulse Oximetry 97 Oxygen Delivery Method Oxygen Flow Rate 03/21/25 20:15 03/21/25 20:20 03/21/25 20:20 Temperature Pulse Rate 68 68 Respiratory Rate 20 21 Blood Pressure 112/56 L Pulse Oximetry 97 96 Oxygen Delivery Method Room Air Oxygen Flow Rate 03/21/25 20:30 03/21/25 20:30 03/21/25 20:45 Temperature Pulse Rate 67 Respiratory Rate 17 Blood Pressure 124/57 L 115/54 L Pulse Oximetry 94 Oxygen Delivery Method Oxygen Flow Rate 03/21/25 20:45 03/21/25 21:00 03/21/25 21:00 Temperature Pulse Rate 67 67 Respiratory Rate 23 12 Blood Pressure 118/58 L Pulse Oximetry 96 96 Oxygen Delivery Method Oxygen Flow Rate MDM - Arrhythmia/Palpitations <Lawson Box MD - Last Filed: 04/02/25 15:20> Lab Data 03/21/25 16:20 03/21/25 16:20 Labs: Lab Results 03/21/25 Range/Units 16:20 WBC 11.3 H (4.5-11.0) X10^3/uL RBC 4.17 (4.0-5.2) X10^6/uL Hgb 13.0 (12.0-16.0) g/dL Hct 38.2 (36-46) % MCV 91.6 D (80-100) fL MCH 31.1 (26-34) PG MCHC 33.9 (30-36) % RDW 14.1 (11.6-14.8) % Plt Count 394 (150-400) X10^3/uL Neut % (Auto) 63.7 (50-75) % Lymph % (Auto) 24.5 L (25-40) % Terry % (Auto) 7.8 (3-14) % Eos % (Auto) 3.1 (2-4) % Baso % (Auto) 0.9 (0-2) % Neut # (Auto) 7200 H (5335-4076) /uL Lymph # (Auto) 2800 (7706-0723) /uL Terry # (Auto) 900 (0-900) /uL Eos # (Auto) 300 (0-450) /uL Baso # (Auto) 100 (0-100) /uL PT 14.9 H (9.4-12.5) SECONDS INR 1.3 (0.9-1.3) APTT 37 H (25.1-36.5) SECONDS Sodium 142 (137-145) mmol/L Potassium 4.3 (3.4-5.1) mmol/L Chloride 105 (98-107) mmol/L Carbon Dioxide 27 (22-32) mmol/L BUN 17 (7-17) mg/dL Creatinine 0.81 (0.52-1.04) mg/dL Estimated GFR > 60 (>60) mL/min BUN/Creatinine Ratio 21.0 (6-22) Glucose 103 H (70-99) mg/dL Calcium 9.1 (8.4-10.2) mg/dL Magnesium 2.0 (1.6-2.3) mg/dL Total Bilirubin 0.8 (0.2-1.3) mg/dL AST 28 (14-36) IU/L ALT 26 (<35) IU/L Alkaline Phosphatase 61 (38-126) U/L Total Creatine Kinase 64 (30-135) U/L Troponin I < 0.012 (0.01-0.034) ng/mL NT-Pro-B Natriuret Pep 4280 H (<125) pg/mL Total Protein 7.5 (6.3-8.2) g/dL Albumin 4.4 (3.5-5.0) g/dL Globulin 3.1 (1.7-4.1) g/dL Albumin/Globulin Ratio 1.4 (1.0-2.8) Lipase 50 (23-300) U/L <Roya Kahn, DO - Last Filed: 03/21/25 23:26> Lab Data Labs: Lab Results 03/21/25 Range/Units 16:20 WBC 11.3 H (4.5-11.0) X10^3/uL RBC 4.17 (4.0-5.2) X10^6/uL Hgb 13.0 (12.0-16.0) g/dL Hct 38.2 (36-46) % MCV 91.6 D (80-100) fL MCH 31.1 (26-34) PG MCHC 33.9 (30-36) % RDW 14.1 (11.6-14.8) % Plt Count 394 (150-400) X10^3/uL Neut % (Auto) 63.7 (50-75) % Lymph % (Auto) 24.5 L (25-40) % Terry % (Auto) 7.8 (3-14) % Eos % (Auto) 3.1 (2-4) % Baso % (Auto) 0.9 (0-2) % Neut # (Auto) 7200 H (4393-1417) /uL Lymph # (Auto) 2800 (9353-1751) /uL Terry # (Auto) 900 (0-900) /uL Eos # (Auto) 300 (0-450) /uL Baso # (Auto) 100 (0-100) /uL PT 14.9 H (9.4-12.5) SECONDS INR 1.3 (0.9-1.3) APTT 37 H (25.1-36.5) SECONDS Sodium 142 (137-145) mmol/L Potassium 4.3 (3.4-5.1) mmol/L Chloride 105 (98-107) mmol/L Carbon Dioxide 27 (22-32) mmol/L BUN 17 (7-17) mg/dL Creatinine 0.81 (0.52-1.04) mg/dL Estimated GFR > 60 (>60) mL/min BUN/Creatinine Ratio 21.0 (6-22) Glucose 103 H (70-99) mg/dL Calcium 9.1 (8.4-10.2) mg/dL Magnesium 2.0 (1.6-2.3) mg/dL Total Bilirubin 0.8 (0.2-1.3) mg/dL AST 28 (14-36) IU/L ALT 26 (<35) IU/L Alkaline Phosphatase 61 (38-126) U/L Total Creatine Kinase 64 (30-135) U/L Troponin I < 0.012 (0.01-0.034) ng/mL NT-Pro-B Natriuret Pep 4280 H (<125) pg/mL Total Protein 7.5 (6.3-8.2) g/dL Albumin 4.4 (3.5-5.0) g/dL Globulin 3.1 (1.7-4.1) g/dL Albumin/Globulin Ratio 1.4 (1.0-2.8) Lipase 50 (23-300) U/L MDM Narrative Medical decision making narrative: 03/21/25 Dr. Kahn: Patient signed out to myself by Dr. Box, labs show white count 11.3 consistent with priors normal hemoglobin and platelets, INR is 1.3 PTT is 37. Chemistries are overall appropriate potassium is 4.3 Mag is 2 creatinine 0.8, troponins less than 0.012 with a BNP of 4280. Chest x-ray shows no acute cardiopulmonary abnormality. EKG shows atrial flutter 2-1 AV conduction right bundle-branch lifting. To fascicular block, rate of 107 QRS of 160 QTC of 493. Patient was here on 03/12/25 for AFib RVR patient was cardioverted here in the department. Patient appears to be appropriately anticoagulated with Eliquis, states she is taking her medication daily. Last echo from 2023 showed an EF of 66%. After discussion patient notes that she was started on Eliquis on this 14 of February, started on flecainide 100 mg but changed to 50 mg b.i.d. secondary to too many side effects. Tried a dose of metoprolol 25 mg today but felt very lightheaded she is not on any metoprolol daily as her blood pressure tends to run in the 1 teens or lower. Patient notes she has felt a little bit fatigued but not has a lot of other symptoms no syncope, no lightheadedness, no chest pain or shortness of breath, no new swelling in her extremities no other GI or urinary symptoms. Patient notes she did get a cardioversion on 03/12/2025 which she tolerated but only lasted for 9 days. She notes that she had an outpatient echo through her cardiology group in the last month. She follows with the [facility] cardiology with Dr. Vanessa. We will reach out to Cardiology discussed with patient's candidate for anticoagulation she is not quite 6 weeks post anticoagulation. But did have a cardioversion aon 03/12/25. Spoke with Dr. Harvey, cardiology with the [facility] if patient is good historian feels that she could be cardioverted at this time would recommend we half tablet of metoprolol daily at 12.5 mg if she can tolerate to help prevent recurrence. Patient had cardioversion here in the department. Patient tolerated well. Repeat EKG shows sinus rhythm rate of 67 [place] 192 QRS of 140 QTC of [address] elevation noted. Discharge Plan Departure Patient Disposition: Home Clinical Impression: Atrial flutter with rapid ventricular response Instructions: DI for Atrial Flutter Activity Restrictions/Additional Instructions: Appear to have an atrial tachycardia today. You were cardioverted here in the department. I did speak with the on-call city superintendent of schools for your group they recommended if you can tolerate a half tablet (12.5mg) of your metoprolol daily to go ahead and take this along with your daily flecainide and Eliquis. If it drops your blood pressure too low or makes you feel lightheaded you do not have to continue it but please let the city superintendent of schools know. Please return if you have new or recurrent symptoms, lightheadedness or passing out, new chest pain, shortness of breath, new swelling of your extremities, persistent vomiting or other new or concerning changes. Prescriptions: No Action Esomeprazole Magnesium (Nexium) 20 mg PO Q DAY Qty: 0 escitalopram oxalate 10 mg tablet 10 mg PO DAILY Repatha SureClick 140 mg/mL pen injector 140 mg SUBCUT Q2W hydrocodone-acetaminophen 5-325 mg tablet 1 tab PO Q4-6H PRN (Reason: severe pain) Patient Comments: for post op olmesartan 5 mg tablet 5 mg PO DAILY levothyroxine 75 mcg capsule 75 mcg PO DAILY aspirin [Adult Low Dose Aspirin] 81 mg tablet,delayed release (DR/EC) 81 mg PO DAILY Referrals: *Temp,ED* [Primary Care Provider, Emergency Medicine] Stand Alone Forms: Patient Portal/API
--- NOTE | 2025-03-21 17:32 | DI.RAD.S_ITS ---
PROCEDURE: XR CHEST 1V INDICATIONS: Atrial fibrillation TECHNIQUE: One view of the chest was acquired. COMPARISON: [facility], CR, XR CHEST 1V, 03/12/2025, 12:23. FINDINGS: Surgical changes and devices: Surgical clip projecting in left upper quadrant abdominal soft tissues, probably within the left breast. Lungs and pleura: Lungs are clear. No pleural effusions or pneumothorax. Mediastinum: Mediastinal contours appear normal. Heart size is normal. Bones and chest wall: No suspicious bony lesions. Overlying soft tissues appear unremarkable. IMPRESSION: No acute cardiopulmonary abnormality is seen. Dictated by: Giana Diaz M.D. on 03/21/2025 at 18:19 Approved by: Giana Diaz M.D. on 03/21/2025 at 18:19
[2025-03-21] MEDS: SODIUM CHLORIDE 0.9% 500 ML 1000 ML IV (19:24)
--- NOTE | 2025-03-21 20:10 | PC.NURSE ---
Procedural Sedation note 50mg propofol administered at 1958. Sedation acheived, pt cardioverted at 1999 with 120J. SR on monitor. VSS. Pt desatted to 89%; placed on 3L O2 by NC. Pt now awake, A&Ox 4, STANLEY, breathing freely at 2011. Repeat EKG now being obtained.
--- NOTE | 2025-03-21 20:13 | EKG_ITS ---
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
== END 2025-03-21 21:24 | disposition home or self-care (01) ==
PROVIDERS: Emergency Medicine; Emergency Provider Emergency Medicine
DX: I48.92 Unspecified atrial flutter (principal); Z79.01 Long term (current) use of anticoagulants; R09.02 Hypoxemia
CPT/HCPCS: 36415; 71045; 80053; 82550; 83690; 83735; 83880; 84484; 85025; 85610; 85730; 92960; 93005; 96360; 99285; J2704